=== PATIENT | male | born 1950 | race Caucasian/White ===

== ENCOUNTER 2019-01-21 02:15 | Inpatient (IN) | payer MEDICARE, BC ==
[~2019-01-21] VITALS: Ht 180.3 cm; Wt 81.6 kg
[2019-01-21] MEDS ORDERED: OMEPRAZOLE20 M1 PO (02:22)
[2019-01-21] MEDS ORDERED: CLARITHROMYCIN500 M1 PO (02:22)
[2019-01-21] MEDS ORDERED: FLAGYL500 MG PO ×2 (02:22)
[2019-01-21] MEDS ORDERED: AMOXICILLIN500 M1 PO (02:23)
[2019-01-21 02:48] LABS: BASOPHILS 0.1 % (0-2); EOSINOPHILS 0.7 % (0-7); HEMATOCRIT 48.5 % (42.0-54.0); HEMOGLOBIN 17.7 g/dL (13.5-17.5); IMMATURE GRANULOCYTES 0.2 % (0-5); LYMPHOCYTES 13.8 % (15-50); MCH 33.3 pg (26.0-34.0); MCHC 36.5 g/dL (31.0-37.0); MCV 91.3 fL (80.0-100.0); MEAN PLATELET VOLUME 9.8 fL (7.4-10.4); MONOCYTES 5.5 % (2-11); NEUTROPHILS 79.7 % (40-80); PLATELET COUNT 212 10x3/uL (130-400); RBC 5.31 10x6/uL (4.20-6.10); RDW 12.4 % (11.5-14.5); WBC 13.5 10x3/uL (4.8-10.8)
[2019-01-21 03:01] LABS: ALBUMIN 4.3 g/dL (3.4-5.0); ALKALINE PHOSPHATASE 70 U/L (46-116); ALT (SGPT) 23 U/L (10-68); BILIRUBIN - TOTAL 1.26 mg/dL (0.2-1.3); CALC OSMOLALITY 275 mosm/kg (275-300); CALCIUM 9.9 mg/dL (8.5-10.1); CHLORIDE - SERUM 95 mmol/L (98-107); CREATININE - SERUM 1.2 mg/dL (0.6-1.3); GLUCOSE 135 mg/dL (74-106); PROTEIN - SERUM 7.4 g/dL (6.4-8.2); SODIUM 136 mmol/L (136-145); UREA NITROGEN 19 mg/dL (7-18); eGFR NON AFRICAN AMERICAN 64 mL/min (90-120)
[2019-01-21 03:04] LABS: AMYLASE - SERUM 59 U/L (25-115); LIPASE 119 U/L (73-393)
[2019-01-21 03:05] LABS: TROPONIN-I < 0.017 ng/mL (0.000-0.060)
[2019-01-21 03:45] LABS: APPEARANCE CLEAR (CLEAR); BILIRUBIN NEGATIVE (NEGATIVE); COLOR YELLOW (YELLOW); GLUCOSE NEGATIVE (NEGATIVE); KETONE MODERATE mg/dL (NEGATIVE); NITRITE NEGATIVE (NEGATIVE); PROTEIN NEGATIVE (NEGATIVE); UROBILINOGEN NORMAL (NORMAL)
[2019-01-21 03:46] LABS: BACTERIA NONE SEEN /hpf (NONE SEEN); EPITHELIAL CELLS 0-5 /hpf (0-5); RED CELLS - URINE NONE SEEN /hpf (0-5); WHITE CELLS - URINE 0-5 /hpf (0-5)
--- NOTE | 2019-01-21 04:56 | NUR ---
PT TO RADIOLOGY.
--- NOTE | 2019-01-21 05:22 | NUR ---
PT RETURNED FROM RADIOLOGY.
--- NOTE | 2019-01-21 07:45 | NUR ---
RECEIVED PATIENT FROM ER NURSE VIA WHEEL CHAIR. VSS ON ROOM AIR. WILL CHECK ORDERS
[2019-01-21 07:55] VITALS: BP 130/80; BMI 25.1
--- NOTE | 2019-01-21 10:13 | NUR ---
INITAITED GINSENG FARMER PUMP PER ORDERED SETTINGS
--- NOTE | 2019-01-21 11:01 | NUR ---
16 AMHARIC NGT DROPPED TO LEFT NARE AND HOOKED UP TO LOW INTERMITENT SUCTION. DRAINING BILE CONTENTS
[2019-01-21 12:56] VITALS: BP 156/73
[2019-01-21 16:35] VITALS: BP 165/75
--- NOTE | 2019-01-21 18:19 | NUR ---
PATIENT STILL NAUSEATED AFTER ZOFRAN. CALLED DR. SINGH, ORDERS FOR PHENERGAN IM AND ZOFRAN DRIP IF I PLEASE.
--- NOTE | 2019-01-21 19:15 | NUR ---
RECEIVED CARE FROM DAY NURSE. LYING IN BED WITH FAMILY AT SIDE. IV INFUSING PER ORDER TO PATENT RIGHT AC. NG TUBE TO LIWS. CALL LIGHT AT SIDE. NO NEEDS VOICED AT THIS TIME.
[2019-01-21 20:00] VITALS: BP 124/52
[2019-01-22] VITALS: BP 137/80
--- NOTE | 2019-01-22 00:15 | NUR ---
SATING 85% ON ROOM AIR. 2L O2 APPLIED AND SATS ABBEY TO 94%. PT REPORTS TAKING SHALLOW BREATHS AND WAS SLEEPING. EARLIER IN SHIFT PT NOT USING FREIGHT FLAGMAN BUT BEGAN USING AROUND 2100.
--- NOTE | 2019-01-22 01:10 | NUR ---
I have reviewed this patient and I concur with the Shift Assessment completed by the Licensed Practical Nurse today this shift.
[2019-01-22 04:00] VITALS: BP 148/75
--- NOTE | 2019-01-22 04:43 | NUR ---
OUT OF ROOM AMBULATING IN HALLS
[2019-01-22 06:28] LABS: BASOPHILS 0.2 % (0-2); EOSINOPHILS 1.3 % (0-7); HEMATOCRIT 44.5 % (42.0-54.0); HEMOGLOBIN 15.8 g/dL (13.5-17.5); IMMATURE GRANULOCYTES 0.1 % (0-5); MCH 32.9 pg (26.0-34.0); MCHC 35.5 g/dL (31.0-37.0); MCV 92.7 fL (80.0-100.0); MEAN PLATELET VOLUME 9.7 fL (7.4-10.4); NEUTROPHILS 76.4 % (40-80); PLATELET COUNT 197 10x3/uL (130-400); RDW 12.7 % (11.5-14.5); WBC 11.1 10x3/uL (4.8-10.8)
[2019-01-22 06:49] LABS: CALC OSMOLALITY 280 mosm/kg (275-300); CALCIUM 8.6 mg/dL (8.5-10.1); CHLORIDE - SERUM 104 mmol/L (98-107); GLUCOSE 97 mg/dL (74-106); POTASSIUM - SERUM 3.8 mmol/L (3.5-5.1); SODIUM 140 mmol/L (136-145); UREA NITROGEN 18 mg/dL (7-18); eGFR NON AFRICAN AMERICAN 79 mL/min (90-120)
[2019-01-22 08:46] VITALS: BP 122/53
--- NOTE | 2019-01-22 09:21 | NUR ---
PT ALERT X 4. BREATH SOUNDS CLEAR BILAT. NG TUBE TO LEFT NARE SET TO LIWS. IV TO RIGHT AC, PATENT, DRESSING CDI. BOWEL SOUNDS HYPOACTIVE X 4. PT REPORTING NO PAIN AT THIS TIME. FAMILY AT BEDSIDE. BED LOW, CALL LIGHT IN REACH. NO OTHER NEEDS AT THIS TIME.
[2019-01-22 09:47] VITALS: Ht 180.3 cm; Wt 81.6 kg
[2019-01-22 12:39] VITALS: BP 126/68
[2019-01-22 16:52] VITALS: BP 134/73
--- NOTE | 2019-01-22 19:30 | NUR ---
PT SITTING UP IN BED WITHOUT DISTRESS, AOX4. FAMILY AT BEDSIDE. IV RIGHT AC INFUSING NS @ 125 WITH DILAUDID ADJUNCT INSTRUCTOR OF WOMEN'S STUDIES IN USE. PT STATES NO PAIN AT THIS TIME. BOWEL SOUNDS HYPOACTIVE, ABD TENDER TO TOUCH. DENIES NAUSEA. NGT LEFT NARE TO LIS. DENIES NEEDS, CL IN REACH. WILL CTM
--- NOTE | 2019-01-22 19:45 | NUR ---
PT AMBULATING AROUND NURSES STATION WITH ASSISTANCE FROM FAMILY
--- NOTE | 2019-01-22 22:45 | NUR ---
PT LYING IN BED RESTING QUIETLY. DENIES NEEDS. WILL CTM
[2019-01-23 00:46] VITALS: BP 151/81
[2019-01-23 05:03] VITALS: BP 128/67
--- NOTE | 2019-01-23 05:30 | NUR ---
PT AMBULATING IN HALLWAY WITH SPOUSE. DENIES NEEDS, WILL CTM
[2019-01-23 05:38] LABS: BASOPHILS 0.2 % (0-2); EOSINOPHILS 1.9 % (0-7); HEMATOCRIT 43.2 % (42.0-54.0); HEMOGLOBIN 14.9 g/dL (13.5-17.5); IMMATURE GRANULOCYTES 0.1 % (0-5); MCH 32.7 pg (26.0-34.0); MCHC 34.5 g/dL (31.0-37.0); MEAN PLATELET VOLUME 9.7 fL (7.4-10.4); MONOCYTES 9.6 % (2-11); NEUTROPHILS 73.2 % (40-80); PLATELET COUNT 173 10x3/uL (130-400); RBC 4.55 10x6/uL (4.20-6.10); RDW 12.8 % (11.5-14.5); WBC 9.6 10x3/uL (4.8-10.8)
[2019-01-23 05:39] LABS: MCV 94.9 fL (80.0-100.0)
[2019-01-23 05:53] LABS: CALC OSMOLALITY 286 mosm/kg (275-300); CALCIUM 8.5 mg/dL (8.5-10.1); CARBON DIOXIDE 28.7 mmol/L (21.0-32.0); CHLORIDE - SERUM 106 mmol/L (98-107); CREATININE - SERUM 0.8 mg/dL (0.6-1.3); GLUCOSE 82 mg/dL (74-106); POTASSIUM - SERUM 4.3 mmol/L (3.5-5.1); SODIUM 143 mmol/L (136-145); UREA NITROGEN 21 mg/dL (7-18); eGFR NON AFRICAN AMERICAN > 90 mL/min (90-120)
[2019-01-23 08:58] VITALS: BP 120/66
[2019-01-23 12:07] VITALS: BP 143/74
[2019-01-23 17:06] VITALS: BP 159/87
--- NOTE | 2019-01-23 19:25 | NUR ---
PT SITTING UP IN BED WITHOUT DISTRESS, AOX4. FAMILY AT BEDSIDE. IV LEFT FA INFUSING NS @ 125 WITH DILAUDID SLUDGE CONTROL OPERATOR IN USE. PT STATES NO PAIN AT THIS TIME. NGT TO LIS. DENIES NEEDS. CL IN REACH, WILL CTM
[2019-01-23 20:00] VITALS: BP 153/79
--- NOTE | 2019-01-23 20:30 | NUR ---
AMBULATING IN HALLWAYS WITH FAMILY
--- NOTE | 2019-01-23 21:31 | NUR ---
PT COMPLAINS OF NAUSEA, NO VOMITING. GAVE ZOFRAN ORDERED. DENIES OTHER NEEDS. CL IN REACH, WILL CTM
[2019-01-24] VITALS: BP 144/74
--- NOTE | 2019-01-24 03:00 | NUR ---
PT CALLED STATING HE WAS NAUSEOUS. GAVE ZOFRAN ORDERED AND COLD WASH CLOTH FOR FACE. NGT WITHOUT RECENT OUTPUT. FLUSHED NGT WITH 50ML WARM WATER, IMMEDIATE RETURN OF 600ML. PT BEGAN FEELING BETTER BEFORE THIS NURSE EXITED ROOM. WILL CTM
[2019-01-24 04:00] VITALS: BP 137/68
--- NOTE | 2019-01-24 04:40 | NUR ---
850ML OUTPUT FROM NGT AFTER PREVIOUS 500ML
--- NOTE | 2019-01-24 05:25 | NUR ---
NGT WOULD NOT SUCTION AFTER REPLACING CANNISTER. CHANGED OUT SUCTION EQUIPMENT AND FLUSHED TUBE. COULD NOT GET TUBE TO DRAW BACK AFTER FLUSHING WITH 30ML. TUBE WOULD START SUCTIONING IF PT MOVED HEAD TO DIFFERENT POSITIONS. PT FEELS LIKE HIS STOMACH IS BLOATED LIKE BEFORE WHEN SO MUCH WAS IN STOMACH. NGT IS PLACED AT PREVIOUS TAPE PLACED FOR CORRECT POSITION. STAT XRAY FOR NGT PLACEMENT.
--- NOTE | 2019-01-24 06:07 | NUR ---
XRAY RESULTS SHOW CORRECT NGT POSITION, NGT PLACED BACK TO LIS
[2019-01-24 06:29] LABS: BASOPHILS 0.1 % (0-2); EOSINOPHILS 0.2 % (0-7); HEMATOCRIT 42.5 % (42.0-54.0); HEMOGLOBIN 14.7 g/dL (13.5-17.5); IMMATURE GRANULOCYTES 0.1 % (0-5); LYMPHOCYTES 7.4 % (15-50); MCH 32.7 pg (26.0-34.0); MCHC 34.6 g/dL (31.0-37.0); MCV 94.7 fL (80.0-100.0); MONOCYTES 7.7 % (2-11); NEUTROPHILS 84.5 % (40-80); PLATELET COUNT 174 10x3/uL (130-400); RBC 4.49 10x6/uL (4.20-6.10); RDW 12.5 % (11.5-14.5); WBC 8.2 10x3/uL (4.8-10.8)
[2019-01-24 06:52] LABS: ALBUMIN 3.1 g/dL (3.4-5.0); ALKALINE PHOSPHATASE 52 U/L (46-116); ALT (SGPT) 15 U/L (10-68); BILIRUBIN - TOTAL 0.78 mg/dL (0.2-1.3); CALC OSMOLALITY 301 mosm/kg (275-300); CALCIUM 8.5 mg/dL (8.5-10.1); CARBON DIOXIDE 31.8 mmol/L (21.0-32.0); CHLORIDE - SERUM 110 mmol/L (98-107); CREATININE - SERUM 0.9 mg/dL (0.6-1.3); GLUCOSE 108 mg/dL (74-106); MAGNESIUM - SERUM 2.1 mg/dL (1.8-2.4); POTASSIUM - SERUM 4.2 mmol/L (3.5-5.1); PROTEIN - SERUM 6.3 g/dL (6.4-8.2); SODIUM 149 mmol/L (136-145); UREA NITROGEN 26 mg/dL (7-18); eGFR NON AFRICAN AMERICAN 90 mL/min (90-120)
--- NOTE | 2019-01-24 07:57 | NUR ---
RESTING IN BED. ALERT AND ORIENTED X 3. LUNGS CLEAR BILATERALLY IN ALL LOVE. HEART SOUNDS S1 AND S2 HEARD IN ALL LOVE. BOWEL SOUNDS HYPOACTIVE X 4. SKIN INTACT WITHOUT REDNESS. NG TUBE TO LEFT NARE HOOKED TO INTERMITTENT SUCTION PATENT. DENIES NEEDS AT THIS TIME. BED LOW. CALL FLANNERY AND PERSONAL ITEMS IN REACH. WILL CONTINUE TO MONITOR.
[2019-01-24 08:06] VITALS: BP 146/77
[2019-01-24 11:49] VITALS: BP 124/65
--- NOTE | 2019-01-24 13:47 | MORECARE ---
CASE MANAGEMENT DISCHARGE SUMMARY PATIENT: EVERARDO ACEVES UNIT: [id number] ADM DATE: 01/21/19 AGE: 68 : 52 SEX: M ROOM/BED: D.2230 AUTHOR: STEFANIE FARRELL PHYSICIAN: REFERRING PHYSICIAN: ROSETTA SINGH MD DATE OF SERVICE: 01/24/19 Discharge Plan Patient Name: EVERARDO ACEVES [facility] [facility] 1950 Planned Disposition: Home Anticipated Discharge Date: Discharge Date: Expected LOS: Initial Reviewer: [email or web address] Initial Review Date: 01/24/2019 Generated: 01/24/19 2:46 pm Comments DCP- Discharge Planning Updated by [email or web address]: Denise Gillette on 01/24/19 12:[address] Patient Name: EVERARDO ACEVES Admission Status: ER Accout number: [id number] Admission Date: 01-21-2019 : 1950 Admission Diagnosis: Attending: ROSETTA SINGH Current LOS: 3 Anticipated DC Date: Planned Disposition: Home Primary Insurance: MEDICARE A & B Discharge Planning Comments: CM met with patient at bedside after explaining CM role and obtaining verbal consent. CM discussed availability / needs of home health and medical equipment. Patient denies any discharge needs at this time. Training And Development Rep: Denise Gillette DCPIA - Discharge Planning Initial Assessment Updated by [email or web address]: Denise Gillette on 01/24/19 1:40 pm * Is the patient Alert and Oriented? Yes * PCP JAY * Pharmacy [facility] [address] * Preadmission Environment Home with Family * ADLs Independent * Additional services required to return to the preadmission environment? No * Can the patient safely return to the preadmission environment? Yes * Has this patient been hospitalized within the prior 30 days at any hospital? No Patient Name: EVERARDO ACEVES Page 56250 at 1347 All edits/amendments must be made on the electronic document DICTATION DATE: 01/24/19 1346 CUP TRIMMING MACHINE OPERATOR: STEPHANI 01/24/19 1346 RPT#: [id number] DC DATE: STATUS: ADM IN [facility] [address] [place] [address] END OF REPORT
--- NOTE | 2019-01-24 17:37 | NUR ---
NG TUBE WITH PROPER PLACEMENT PER STAT KUB.
--- NOTE | 2019-01-24 18:49 | NUR ---
RESTING IN BED. DENIES PAIN. DENIES NEEDS AT THIS TIME. BED LOW. CALL FLANNERY AND PERSONAL ITEMS IN REACH.
[2019-01-24 19:53] VITALS: BP 133/50
--- NOTE | 2019-01-24 23:08 | NUR ---
A&O X 4, UP AD ISAMAR. PT RECIEVED HIBICLENS. RECONNECTED TO FLUIDS. NGT TO LEFT NARE ON LIS. REPORTS ADEQUATE PAIN CONTROL WITH DISHWASHER PREPARER. DENIES NEEDS AT THIS TIME. WILL CONTINUE TO MONITOR.
--- NOTE | 2019-01-25 01:05 | NUR ---
I have reviewed this patient and I concur with the Shift Assessment completed by the Licensed Practical Nurse today this shift.
[2019-01-25 01:12] VITALS: BP 123/54
[2019-01-25 04:56] VITALS: BP 135/71
[2019-01-25 05:13] LABS: BASOPHILS 0.3 % (0-2); EOSINOPHILS 1.4 % (0-7); HEMATOCRIT 39.9 % (42.0-54.0); HEMOGLOBIN 13.9 g/dL (13.5-17.5); IMMATURE GRANULOCYTES 0.1 % (0-5); LYMPHOCYTES 14.4 % (15-50); MCH 32.7 pg (26.0-34.0); MCHC 34.8 g/dL (31.0-37.0); MCV 93.9 fL (80.0-100.0); MONOCYTES 9.4 % (2-11); NEUTROPHILS 74.4 % (40-80); PLATELET COUNT 159 10x3/uL (130-400); RBC 4.25 10x6/uL (4.20-6.10); RDW 12.7 % (11.5-14.5); WBC 7.1 10x3/uL (4.8-10.8)
[2019-01-25 05:44] LABS: ALBUMIN 2.9 g/dL (3.4-5.0); ALKALINE PHOSPHATASE 50 U/L (46-116); ALT (SGPT) 17 U/L (10-68); BILIRUBIN - TOTAL 0.74 mg/dL (0.2-1.3); CALC OSMOLALITY 297 mosm/kg (275-300); CALCIUM 8.4 mg/dL (8.5-10.1); CARBON DIOXIDE 30.6 mmol/L (21.0-32.0); CHLORIDE - SERUM 109 mmol/L (98-107); CREATININE - SERUM 0.9 mg/dL (0.6-1.3); GLUCOSE 105 mg/dL (74-106); MAGNESIUM - SERUM 2.1 mg/dL (1.8-2.4); POTASSIUM - SERUM 3.6 mmol/L (3.5-5.1); PROTEIN - SERUM 6.1 g/dL (6.4-8.2); SODIUM 147 mmol/L (136-145); UREA NITROGEN 29 mg/dL (7-18); eGFR NON AFRICAN AMERICAN 90 mL/min (90-120)
--- NOTE | 2019-01-25 08:30 | NUR ---
ASSESSMENT PER FLOW SHEET. PT IS WITHOUT DISTRESS.REMAINS NPO.CALL LIGHT IN REACH
[2019-01-25 08:31] VITALS: BP 134/65
[2019-01-25 15:51] VITALS: BP 132/60
--- NOTE | 2019-01-25 15:59 | NUR ---
BACK FROM PACU. LAP SITES X4 CDI.PT IS WITHOUT DISTRESS
[2019-01-25 20:18] VITALS: BP 110/66
--- NOTE | 2019-01-25 22:02 | NUR ---
A&O X 4, FAMILY AT BEDSIDE. REPORTS MODERATE SORENESS TO ABDOMEN. DRESSINGS X 4 C/D/I. DENIES NEEDS AT THIS TIME, WILL CONTINUE TO MONITOR.
[2019-01-26 00:44] VITALS: BP 117/68
--- NOTE | 2019-01-26 02:37 | NUR ---
I have reviewed this patient and I concur with the Shift Assessment completed by the Licensed Practical Nurse today this shift.
[2019-01-26 04:43] VITALS: BP 124/62
[2019-01-26 05:03] LABS: BASOPHILS 0.1 % (0-2); EOSINOPHILS 0 % (0-7); HEMATOCRIT 45.2 % (42.0-54.0); HEMOGLOBIN 15.8 g/dL (13.5-17.5); IMMATURE GRANULOCYTES 0.6 % (0-5); LYMPHOCYTES 3.5 % (15-50); MCH 32.7 pg (26.0-34.0); MCV 93.6 fL (80.0-100.0); MONOCYTES 5.7 % (2-11); NEUTROPHILS 90.1 % (40-80); PLATELET COUNT 168 10x3/uL (130-400); RBC 4.83 10x6/uL (4.20-6.10); RDW 12.9 % (11.5-14.5)
[2019-01-26 05:17] LABS: WBC 10.7 10x3/uL (4.8-10.8)
[2019-01-26 05:29] LABS: ALBUMIN 2.3 g/dL (3.4-5.0); ALKALINE PHOSPHATASE 36 U/L (46-116); ALT (SGPT) 14 U/L (10-68); BILIRUBIN - TOTAL 0.82 mg/dL (0.2-1.3); CALC OSMOLALITY 299 mosm/kg (275-300); CALCIUM 7.7 mg/dL (8.5-10.1); CARBON DIOXIDE 24.8 mmol/L (21.0-32.0); CHLORIDE - SERUM 113 mmol/L (98-107); GLUCOSE 135 mg/dL (74-106); MAGNESIUM - SERUM 1.8 mg/dL (1.8-2.4); POTASSIUM - SERUM 3.8 mmol/L (3.5-5.1); PROTEIN - SERUM 5.2 g/dL (6.4-8.2); SODIUM 147 mmol/L (136-145); UREA NITROGEN 29 mg/dL (7-18); eGFR NON AFRICAN AMERICAN 79 mL/min (90-120)
--- NOTE | 2019-01-26 09:54 | NUR ---
ADMINISTERED PRN TORADOL AND PATIENT STATES PAIN IS STILL AT A 9 AND HAS NOT WORKED, ADVISED PATIENT TO ALLOW A LITTLE MORE TIME, PT WENT AHEAD AND PUSHED BUTTON FOR PAIN MEDICATION, CONTINUE WITH PLAN OF CARE
[2019-01-26 11:44] VITALS: BP 112/64
--- NOTE | 2019-01-26 13:24 | NUR ---
Nutrition follow-up: Pt s/p lysis of adhesions Remains NPO with NGT->LIWS with high output bilious fluid No BM or flatus yet Labs reviewed Wt: 180# Will need nutrition support started within 24-48 hours if diet unable to begin RDN following.
--- NOTE | 2019-01-26 14:58 | NUR ---
I have reviewed this patient and I concur with the Shift Assessment completed by the Licensed Practical Nurse today this shift.
[2019-01-26 16:51] VITALS: BP 101/55
--- NOTE | 2019-01-26 18:34 | NUR ---
PATIENT ABLE TO PASS GAS AND HAD SMALL BM, SPOKE TO DR LOUIS AND GIVEN ORDER TO DC PT NGT AND ADVANCE DIET TO CLEAR LIQUIDS.
[2019-01-26 21:44] VITALS: BP 99/57
[2019-01-27 01:53] VITALS: BP 100/66
[2019-01-27 04:56] LABS: BASOPHILS 0.1 % (0-2); EOSINOPHILS 0.3 % (0-7); HEMATOCRIT 37.6 % (42.0-54.0); IMMATURE GRANULOCYTES 0.4 % (0-5); LYMPHOCYTES 4.5 % (15-50); MCH 32.1 pg (26.0-34.0); MCHC 34.6 g/dL (31.0-37.0); MCV 92.8 fL (80.0-100.0); MEAN PLATELET VOLUME 9.8 fL (7.4-10.4); MONOCYTES 3.3 % (2-11); NEUTROPHILS 91.4 % (40-80); PLATELET COUNT 136 10x3/uL (130-400); RBC 4.05 10x6/uL (4.20-6.10); RDW 13.2 % (11.5-14.5); WBC 11.8 10x3/uL (4.8-10.8)
[2019-01-27 04:57] VITALS: BP 108/60
[2019-01-27 05:20] LABS: ALBUMIN 2.2 g/dL (3.4-5.0); ALKALINE PHOSPHATASE 43 U/L (46-116); ALT (SGPT) 14 U/L (10-68); BILIRUBIN - TOTAL 0.59 mg/dL (0.2-1.3); CALC OSMOLALITY 308 mosm/kg (275-300); CALCIUM 7.4 mg/dL (8.5-10.1); CARBON DIOXIDE 26.6 mmol/L (21.0-32.0); GLUCOSE 121 mg/dL (74-106); MAGNESIUM - SERUM 1.9 mg/dL (1.8-2.4); POTASSIUM - SERUM 3.4 mmol/L (3.5-5.1); PROTEIN - SERUM 4.6 g/dL (6.4-8.2); SODIUM 152 mmol/L (136-145); UREA NITROGEN 29 mg/dL (7-18); eGFR NON AFRICAN AMERICAN 79 mL/min (90-120)
[2019-01-27 05:25] LABS: CHLORIDE - SERUM 117 mmol/L (98-107)
[2019-01-27 09:26] VITALS: BP 130/78
--- NOTE | 2019-01-27 10:45 | NUR ---
PATIENT UP TO SHOWER. CHANGED RIGHT INCISIONAL DRESSING. CLEAN AND DRY WITH NO SIGNS OF INFECTION. IV INTACT. CALL LIGHT WITHIN REACH. FAMILY AT BEDSIDE.
--- NOTE | 2019-01-27 11:30 | NUR ---
PATIENT AMBULATING IN [place] WITH WITH NO PROBLEMS. IV INTACT.
[2019-01-27 12:48] VITALS: BP 100/61
--- NOTE | 2019-01-27 13:00 | NUR ---
PATIENT SITTING UP IN CHAIR AT THIS TIME WITH NO COMPLAINTS OR SIGNS OF DISTRESS. CALL LIGHT WITHIN REACH.
--- NOTE | 2019-01-27 13:23 | OP ---
PATIENT NAME: EVERARDO ACEVES MEDICAL RECORD: [id number] :54 LOCATION:D.MS [id number] ADMISSION DATE:01/21/19 SURGEON: TYRESE QUIROZ MD DATE OF OPERATION: 01/25/2019 PREOPERATIVE DIAGNOSES: 1. Small-bowel obstruction secondary to adhesions. 2. Coronary artery disease. 3. Hypertension. POSTOPERATIVE DIAGNOSES: 1. Small-bowel obstruction secondary to adhesions. 2. Coronary artery disease. 3. Hypertension. PROCEDURES: 1. Laparoscopic lysis of adhesions. 2. Repair of small bowel enterotomy times 2. SURGEON: Tyrese Quiroz MD REPORT OF PROCEDURE: The patient's abdomen was prepped and draped in sterile fashion. A Veress needle was inserted in the left upper quadrant and the abdomen was insufflated. A 5-mm Visiport trocar was inserted in the left lateral abdomen. We can see the Veress needle and there was no sign of any injury to bowel or surrounding structures. The patient had some adhesions in the midline from previous hand-assisted laparoscopic right hemicolectomy. The 5-mm trocar was placed in the left subcostal region and a 5-mm trocar was placed in the left lower quadrant. Using sharp dissection, we were able to take down the adhesions off the anterior abdominal wall, which were of the omentum and fatty tissue to the incision. Once these were down, then we began our inspection of the small bowel, most of the dilated small bowel was on the right side of the abdomen. As we progressed on the right upper quadrant, this appeared to be the area of our obstruction. The bowel was very dilated in this area with dark discoloration, but no signs of any gangrene or necrosis. As we were able to dissect down through the adhesions, we found a very dense band of adhesions which was causing the main portion of the bowel obstruction. We released this band and the tissue underlying this appeared to be very dusky and actually had a perforation present. The perforation appeared to have been blocked by the surrounding tissues and this band, which was causing a necrotic ring to occur in the bowel. We suctioned out any of the enteral contents that were present. We then made a small incision in the right upper quadrant, coming transversely through the anterior and posterior fascia. We then eviscerated this perforated section of bowel through the wound. A opening was made in the distal aspect of the bowel and we were able to fire a 60 blue load Endo-LIBBY stapler to form a [id number]-rz-xhco anastomosis. We then used a 60-blue load TA stapler to close the enterotomies. We then oversewed the staple lines using Lemberted 3-0 silks and pushed this piece of bowel back into the abdominal cavity. We then closed the posterior layer of fascia using a running 0 Vicryl and the anterior layer fascia was closed with a running #1 loop PDS. We reentered the abdomen then irrigated out the tissues, but we could see there were still some adhesions present of the mid jejunum to the posterior aspect of the abdominal wall. Using sharp dissection, we took down these adhesions, but some of these were very deep and difficult to get to. Upon doing this, a traction injury occurred to the small bowel causing another small perforation. OPERATIVE REPORT [id number] EVERARDO ACEVES We freed up all the adhesions and reopened the right upper quadrant incision. We eviscerated this piece of the small bowel and closed up the small enterotomy using a 30 blue load TIA stapler. The enterotomy was on the antimesenteric side of the bowel and closed easily with no sign of any stricturing of the bowel. We then oversewed the staple line using Lemberted 3-0 silks. This piece of bowel was pushed back into the abdominal cavity. We closed the posterior layer of fascia with running 0 Vicryl and the anterior layer of fascia with a #1 PDS. We then reentered the abdominal cavity and irrigated out thoroughly with normal saline with care taken to try and remove any enteral contents that were left behind. I did not see evidence of any further bowel injury. There were diffuse adhesions that were present. These were taken down with sharp dissection. At this point, we had a freely mobile bowel in the right side of the abdomen with no sign of any strictures or enteral leaks. We then removed the trocars and the insufflation. The wounds were irrigated out with normal saline. The skin incisions were then all closed with subcutaneous 5-0 Monocryl. COMPLICATIONS: Enterotomies times 2. CONDITION: Stable. ANESTHESIA: General endotracheal. BLOOD LOSS: Minimal. TRANSINT:[id number] Voice Confirmation ID: [id number] DOCUMENT ID: [id number] TYRESE QUIROZ MD at 1323 CC: [id number] DICTATION DATE: 01/25/19 1456 ADMINISTRATIVE INTERN: 01/25/19 1542 ADM IN [place] [id number] [place] [place] [address]
[2019-01-27 16:29] VITALS: BP 144/74
--- NOTE | 2019-01-27 17:00 | NUR ---
PATIENT ATE 20 % OF REGULAR FOOD. NO NAUSEA OR VOMITTING. IV INTACAT. FAMILY AT BEDSIDE. CALL LIGHT WITHN REACH.
--- NOTE | 2019-01-27 20:00 | NUR ---
SITTING IN RECLINER WITH AT BEDSIDE A/O WITH NO SIGNS OF ACUTE DISTRESS. IV TO THE LT FOREARM WITH NO REDNESS OR SWELLING NOTED. FOUR LAP SITED NOTED TO THE ABDOMEN, CDI. PT REQUEST FOR STOOL SOFTENER. WILL NOTIFY MD. NO OTHER NEEDS NOTED AT THIS TIME. CONTINUE WITH PLAN OF CARE.
[2019-01-27 21:43] VITALS: BP 108/64
[2019-01-28 01:31] VITALS: BP 117/73
[2019-01-28 05:54] VITALS: BP 121/74
[2019-01-28 07:13] LABS: ALKALINE PHOSPHATASE 45 U/L (46-116); ALT (SGPT) 16 U/L (10-68); BILIRUBIN - TOTAL 0.49 mg/dL (0.2-1.3); CALC OSMOLALITY 300 mosm/kg (275-300); CALCIUM 7.4 mg/dL (8.5-10.1); CARBON DIOXIDE 24.4 mmol/L (21.0-32.0); CREATININE - SERUM 0.9 mg/dL (0.6-1.3); GLUCOSE 103 mg/dL (74-106); MAGNESIUM - SERUM 2.1 mg/dL (1.8-2.4); POTASSIUM - SERUM 3.6 mmol/L (3.5-5.1); PROTEIN - SERUM 4.6 g/dL (6.4-8.2); SODIUM 150 mmol/L (136-145); UREA NITROGEN 22 mg/dL (7-18); eGFR NON AFRICAN AMERICAN 90 mL/min (90-120)
[2019-01-28 07:34] LABS: CHLORIDE - SERUM 116 mmol/L (98-107)
[2019-01-28] MEDS ORDERED: HYDROCODON-ACE1 EA10 PO (07:34)
[2019-01-28] MEDS ORDERED: LEVAQUIN750 MG PO (07:35)
[2019-01-28] MEDS ORDERED: FLAGYL500 MG PO (07:35)
[2019-01-28 09:28] VITALS: BP 143/74
--- NOTE | 2019-01-28 10:07 | MORECARE ---
CASE MANAGEMENT DISCHARGE SUMMARY PATIENT: EVERARDO ACEVES UNIT: [id number] ADM DATE: 01/21/19 AGE: 68 : 52 SEX: M ROOM/BED: D.2230 AUTHOR: BUDDOC PHYSICIAN: REFERRING PHYSICIAN: ROSETTA SINGH MD DATE OF SERVICE: 01/28/19 Discharge Plan Patient Name: EVERARDO ACEVES Facility: [facility]:[place] : 1950 Planned Disposition: Home Anticipated Discharge Date: 01/28/19 Discharge Date: Expected LOS: 7 Initial Reviewer: [id number] Initial Review Date: 01/24/2019 Generated: 01/28/19 11:07 am Comments DCP- Discharge Planning Updated by [id number]: Denise Gillette on 01/28/19 9:[address] Patient Name: EVERARDO ACEVES Encounter No: [id number] : 1950 Primary Insurance: MEDICARE A & B Anticipated DC Date: Planned Disposition: Home External Planned Provider: : DCP follow-up note: Patient and family in agreement with discharge plan. No changes to plan. Case management will follow and assist as needed. IMM SIGNED. Denise Gillette DCP- Discharge Planning Updated by [id number]: Denise Gillette on 01/24/19 12:[address] Patient Name: EVERARDO ACEVES Admission Status: ER Accout number: [id number] Admission Date: 01-21-2019 : 1950 Admission Diagnosis: Attending: ROSETTA SINGH Current LOS: 3 Anticipated DC Date: Planned Disposition: Home Primary Insurance: MEDICARE A & B Discharge Planning Comments: CM met with patient at bedside after explaining CM role and obtaining verbal consent. CM discussed availability / needs of home health and medical equipment. Patient denies any discharge needs at this time. Industrial Gas Service Helper: Denise Gillette DCPIA - Discharge Planning Initial Assessment Updated by [id number]: Denise Gillette on 01/24/19 1:40 pm * Is the patient Alert and Oriented? Yes * PCP THOMPSON * Pharmacy [facility] [address] * Preadmission Environment Home with Family * ADLs Independent * Additional services required to return to the preadmission environment? No * Can the patient safely return to the preadmission environment? Yes * Has this patient been hospitalized within the prior 30 days at any hospital? No Coverage Notice Reviewer: [email or web address] - Denise Gillette Notice Issued Date-Time: 01/28/2019 10:00 Notice Type: IM Discharge Notice Notice Delivered To: Patient Relationship to Patient: Classification And Treatment Director Name: Delivery Method: HAND - Hand Delivered Anum Days: Prior Verbal Notification: Recipient Understood Notice: Yes Recipient Signature: Yes Med Rec Note Co-signed by Attending: Coverage Notice Comment: Last DP export: 01/24/19 12:47 p Patient Name: EVERARDO ACEVES Page 29198 at 1007 All edits/amendments must be made on the electronic document DICTATION DATE: 01/28/19 [facility] PICK PACK WORKER: STEPHANI 01/28/19 [facility] RPT#: [id number] DC DATE: STATUS: ADM IN [facility] [address] [place] [address] END OF REPORT
--- NOTE | 2019-01-28 11:13 | NUR ---
PATIENT IV THERAPY DC'ED FROM LEFT FOREARM WITH TIP INTACT. AND HIM VERBALIZED UNDERSTANDING OF DISCHARGE INSTRUCTIONS. PATIENT TO TAKE A SHOWER THEN GET WHEELED DOWNSTAIRS.
--- NOTE | 2019-01-28 16:19 | MORECARE ---
CASE MANAGEMENT DISCHARGE SUMMARY PATIENT: EVERARDO ACEVES UNIT: [id number] ADM DATE: 01/21/19 AGE: 68 : 54 SEX: M ROOM/BED: D.2230 AUTHOR: BUDDOC PHYSICIAN: REFERRING PHYSICIAN: ROSETTA SINGH MD DATE OF SERVICE: 01/28/19 Discharge Plan Patient Name: EVERARDO ACEVES Facility: [facility]:[place] : 1950 Planned Disposition: Home Anticipated Discharge Date: 01/28/19 Discharge Date: 01/28/2019 Expected LOS: 7 Initial Reviewer: [email or web address] Initial Review Date: 01/24/2019 Generated: 01/28/19 5:18 pm Comments DCP- Discharge Planning Updated by [email or web address]: Denise Gillette on 01/28/19 9:[address] Patient Name: EVERARDO ACEVES Encounter No: [id number] : 1950 Primary Insurance: MEDICARE A & B Anticipated DC Date: Planned Disposition: Home External Planned Provider: : DCP follow-up note: Patient and family in agreement with discharge plan. No changes to plan. Case management will follow and assist as needed. IMM SIGNED. Denise Gillette DCP- Discharge Planning Updated by [email or web address]: Denise Gillette on 01/24/19 12:[address] Patient Name: EVERARDO ACEVES Admission Status: ER Accout number: [id number] Admission Date: 01-21-2019 : 1950 Admission Diagnosis: Attending: ROSETTA SINGH Current LOS: 3 Anticipated DC Date: Planned Disposition: Home Primary Insurance: MEDICARE A & B Discharge Planning Comments: CM met with patient at bedside after explaining CM role and obtaining verbal consent. CM discussed availability / needs of home health and medical equipment. Patient denies any discharge needs at this time. Housing Assistant: Denise Gillette DCPIA - Discharge Planning Initial Assessment Updated by [email or web address]: Denise Gillette on 01/24/19 1:40 pm * Is the patient Alert and Oriented? Yes * PCP THOMPSON * Pharmacy [facility] [address] * Preadmission Environment Home with Family * ADLs Independent * Additional services required to return to the preadmission environment? No * Can the patient safely return to the preadmission environment? Yes * Has this patient been hospitalized within the prior 30 days at any hospital? No Coverage Notice Reviewer: [id number] Denise Gillette Notice Issued Date-Time: 01/28/2019 10:00 Notice Type: IM Discharge Notice Notice Delivered To: Patient Relationship to Patient: Front End Software Engineer Name: Delivery Method: HAND - Hand Delivered Anum Days: Prior Verbal Notification: Recipient Understood Notice: Yes Recipient Signature: Yes Med Rec Note Co-signed by Attending: Coverage Notice Comment: Last DP export: 01/28/19 9:07 a Patient Name: EVERARDO ACEVES Page 07900 at 1619 All edits/amendments must be made on the electronic document DICTATION DATE: 01/28/191617 NECK BAND MAKER: STEPHANI 01/28/191617 RPT#: [id number] DC DATE:01/28/19 STATUS: DIS IN [facility] [address] [place] [address] END OF REPORT
== END 2019-01-28 11:48 | disposition home or self-care (01) | DRG 329 ==
LOC: D.ER 02:15 → D.MS 07:38
PROVIDERS: Family Medicine; Surgery; ADMIT Internal Medicine Nephrology; ATTEND Internal Medicine Nephrology
PROC: 0DQ80ZZ Repair Small Intestine, Open Approach (ICD-10-PCS; 2019-01-25)
PROC: 0DQ80ZZ Repair Small Intestine, Open Approach (ICD-10-PCS; 2019-01-25)
PROC: 0DBB0ZZ Excision of Ileum, Open Approach (ICD-10-PCS; 2019-01-25)
PROC: 0DN84ZZ Release Small Intestine, Percutaneous Endoscopic Approach (ICD-10-PCS; principal; 2019-01-25 11:15)
DX: K56.50 Intestinal adhesions [bands], unspecified as to partial versus complete obstruction (principal); K63.1 Perforation of intestine (nontraumatic); K55.049 Acute infarction of large intestine, extent unspecified; I10 Essential (primary) hypertension; I25.10 Atherosclerotic heart disease of native coronary artery without angina pectoris

== ENCOUNTER 2019-01-30 22:31 | Inpatient (IN) | payer MEDICARE, BC ==
[~2019-01-30] VITALS: Ht 180.3 cm; Wt 85.3 kg
[~2019-01-30 22:31] MED LIST: AMOXICILLIN500 M1 PO; CLARITHROMYCIN500 M1 PO; FLAGYL500 MG PO; HYDROCODON-ACE1 EA10 PO; LEVAQUIN750 MG PO; OMEPRAZOLE20 M1 PO
[2019-01-30 23:00] LABS: BASOPHILS 0.1 % (0-2); HEMATOCRIT 37.9 % (42.0-54.0); HEMOGLOBIN 13.5 g/dL (13.5-17.5); IMMATURE GRANULOCYTES 0.4 % (0-5); LYMPHOCYTES 14.1 % (15-50); MCH 32.7 pg (26.0-34.0); MCHC 35.6 g/dL (31.0-37.0); MCV 91.8 fL (80.0-100.0); MONOCYTES 11.9 % (2-11); NEUTROPHILS 69.5 % (40-80); RBC 4.13 10x6/uL (4.20-6.10); RDW 13.6 % (11.5-14.5); WBC 8.3 10x3/uL (4.8-10.8)
[2019-01-30 23:01] LABS: PLATELET COUNT 170 10x3/uL (130-400)
--- NOTE | 2019-01-30 23:14 | NUR ---
URINE SPECIMEN SENT TO LAB
[2019-01-30 23:23] LABS: ALKALINE PHOSPHATASE 55 U/L (46-116); ALT (SGPT) 22 U/L (10-68); AMYLASE - SERUM 110 U/L (25-115); BILIRUBIN - TOTAL 0.53 mg/dL (0.2-1.3); CALC OSMOLALITY 284 mosm/kg (275-300); CALCIUM 7.5 mg/dL (8.5-10.1); CARBON DIOXIDE 28.7 mmol/L (21.0-32.0); CHLORIDE - SERUM 108 mmol/L (98-107); CREATININE - SERUM 0.9 mg/dL (0.6-1.3); GLUCOSE 108 mg/dL (74-106); LIPASE 817 U/L (73-393); PROTEIN - SERUM 5.4 g/dL (6.4-8.2); SODIUM 142 mmol/L (136-145); TROPONIN-I 0.028 ng/mL (0.000-0.060); UREA NITROGEN 16 mg/dL (7-18); eGFR NON AFRICAN AMERICAN 90 mL/min (90-120)
[2019-01-30 23:25] LABS: POTASSIUM - SERUM 2.9 mmol/L (3.5-5.1)
--- NOTE | 2019-01-30 23:27 | NUR ---
PT CONSUMED APPROX 3/4 ORAL CONTRAST AT THIS TIME. PT SPOUSE AT BEDSIDE.
[2019-01-30 23:31] LABS: APPEARANCE CLEAR (CLEAR); BILIRUBIN NEGATIVE (NEGATIVE); COLOR YELLOW (YELLOW); GLUCOSE NEGATIVE (NEGATIVE); KETONE NEGATIVE (NEGATIVE); NITRITE NEGATIVE (NEGATIVE); PROTEIN NEGATIVE (NEGATIVE); UROBILINOGEN NORMAL (NORMAL)
[2019-01-30 23:32] LABS: BACTERIA FEW /hpf (NEGATIVE); EPITHELIAL CELLS 0-5 /hpf (0-5); RED CELLS - URINE 0-5 /hpf (0-5); WHITE CELLS - URINE 0-5 /hpf (NEGATIVE)
--- NOTE | 2019-01-31 00:22 | NUR ---
PT LEFT ED VIA STRETCHER FOR CT.
--- NOTE | 2019-01-31 01:09 | NUR ---
PT AND SPOUSE UPDATED ON PLAN OF CARE.
--- NOTE | 2019-01-31 01:28 | NUR ---
LAB AT BEDSIDE. BLOOD CULTURES DRAWN.
--- NOTE | 2019-01-31 02:05 | NUR ---
ADMITTED TO BED FROM ER AT THIS TIME PT DENIES PAIN AT THIS TIME BUT WANTS MED TO HELP HIM SLEEP BED IS LOW AND LOCKED AND CALL LIGHT PLACED WITH PT
[2019-01-31 02:51] VITALS: BP 163/73; BMI 26.3
[2019-01-31 04:24] VITALS: BP 124/71
[2019-01-31 07:53] VITALS: BP 119/64
--- NOTE | 2019-01-31 09:35 | NUR ---
PATIENT IS RESTING QUIETLY AT THIS TIME. HIS VOICE IS VERY SOFT. DENIES ANY NEEDS AT THIS TIME.
[2019-01-31 11:03] VITALS: BP 117/70
[2019-01-31 14:42] VITALS: BMI 26.2
[2019-01-31 15:37] VITALS: BP 130/89
--- NOTE | 2019-01-31 19:30 | NUR ---
PT SITTING UP IN BED ALERT AND ORIENTED X4 WITH AT BEDSIDE. PT HAS SCD'S ON AT THIS TIME. PT DENIES ANY PAIN OR FURHTER NEEDS AT THIS TIME. BED LOW CALL LIGHT WITHIN REACH. WILL CONTINUE TO MONITOR.
--- NOTE | 2019-01-31 19:35 | NUR ---
REPORTED ELEVATED D DIMER TO ENRIQUE QUIÑONES
[2019-01-31 20:00] VITALS: BP 116/64
[2019-02-01] VITALS: BP 121/69
[2019-02-01 01:06] LABS: APTT 28.7 SECONDS (22.8-39.4); INR 1.29 (0.85-1.17); PROTIME 15.6 SECONDS (11.6-15.0)
[2019-02-01 05:49] LABS: BASOPHILS 0.2 % (0-2); EOSINOPHILS 3.1 % (0-7); HEMATOCRIT 38.5 % (42.0-54.0); HEMOGLOBIN 13.6 g/dL (13.5-17.5); IMMATURE GRANULOCYTES 0.4 % (0-5); LYMPHOCYTES 10.2 % (15-50); MCH 32.1 pg (26.0-34.0); MCHC 35.3 g/dL (31.0-37.0); MCV 90.8 fL (80.0-100.0); MONOCYTES 10.5 % (2-11); NEUTROPHILS 75.6 % (40-80); PLATELET COUNT 195 10x3/uL (130-400); RBC 4.24 10x6/uL (4.20-6.10); RDW 13.5 % (11.5-14.5); WBC 8.9 10x3/uL (4.8-10.8)
[2019-02-01 06:22] LABS: CALC OSMOLALITY 278 mosm/kg (275-300); CALCIUM 7.8 mg/dL (8.5-10.1); CARBON DIOXIDE 28.7 mmol/L (21.0-32.0); CHLORIDE - SERUM 105 mmol/L (98-107); CREATININE - SERUM 0.8 mg/dL (0.6-1.3); GLUCOSE 101 mg/dL (74-106); LIPASE 563 U/L (73-393); MAGNESIUM - SERUM 1.9 mg/dL (1.8-2.4); PHOSPHOROUS 2.3 mg/dL (2.5-4.9); SODIUM 139 mmol/L (136-145); UREA NITROGEN 14 mg/dL (7-18); eGFR NON AFRICAN AMERICAN > 90 mL/min (90-120)
[2019-02-01 06:25] LABS: POTASSIUM - SERUM 3.6 mmol/L (3.5-5.1)
--- NOTE | 2019-02-01 07:14 | NUR ---
REPORT RECEIVED. WILL CONTINUE WITH POC. PT CURRENTLY LYING SEMI FOWLERS. CALL LIGHT W/I REACH. AT BEDSIDE. PT IS AAO AND UP AD ISAMAR. RR EVEN AND UNLABORED ON RA. L.AC PIV IS SALINE LOCKED. PT DENIES ANY NEEDS AT THIS TIME. NO S/S OF DISTRESS NOTED. WILL CTM.
[2019-02-01 08:00] VITALS: BP 120/64
[2019-02-01 09:26] VITALS: Ht 180.3 cm; Wt 85.3 kg
--- NOTE | 2019-02-01 11:56 | NUR ---
I have reviewed this patient and I concur with the Shift Assessment completed by the Licensed Practical Nurse today this shift.
[2019-02-01 12:24] VITALS: BP 126/65
--- NOTE | 2019-02-01 13:38 | EC ---
PATIENT:EVERARDO ACEVES DATE OF SERVICE: 01/31/19 SEX: M MEDICAL RECORD: [id number] DATE OF : [birth year] LOCATION:D.M2 D.213 AGE OF PATIENT: 68 ADMISSION DATE: 01/31/19 REFERRING PHYSICIAN: INTERPRETING PHYSICIAN: ABELINO SALOMON MD ECHOCARDIOGRAM REPORT ECHO CHARGES 4 ECHO COMPLETE Date: 01/31/19 CLINICAL DIAGNOSIS: CHF ECHOCARDIOGRAPHIC MEASUREMENTS (adult normal given) AC root (d.<3.7cm) 2.9 cm LV Septum d (<1.2 cm> 0.9 cm Valve Excursion 1.7 cm LV Septum (systole) 1.3 cm Left Atria (s.<4.0cm> 3.9 cm LVPW d(<1.2cm) 1.2 cm RV (d.<2.3cm) 2.8 cm LVPW (sytole) 1.3 cm LV diastole(<5.6CM) 5.6 cm MV E-F(>70mm/sec) cm LV systole 4.5 cm LVOT Diameter 2.2 cm MV exc.(>10mm) cm Est.ejection fraction (50-75%) % DOPPLER: LVIT cm/sec A 107 cm/sec E 108 cm/sec LA cm/sec RVSP 31.0 mmHg LVOT 178 cm/sec AOP1/2T m/s Asc. Ao 186 cm/sec RVOT 75 cm/sec RA cm/sec PA 100 cm/sec AV Gradient Peak 13.9 mmHg AV Mean 7.0 mmHg AV Area 3.5 cm MV Gradient Peak 5.4 mmHg MV Mean 1.8 mmHg MV Area cm COMMENTS: Cut Pressman: Myke ALAN Grain Inspector: 1 Dr. Salomon TAPE# PACS Pericardial Effusion N DATE OF SERVICE: 01/31/2019 PROCEDURE: Echocardiogram. FINDINGS: 1. Left ventricular chamber size is within normal limits. Left ventricular systolic function is normal at 55%. 2. Left atrium, right atrium and right ventricular chamber sizes are within normal limits. 3. Valvular structures have normal structure and motion. ECHOCARDIOGRAM REPORT [id number] EVERARDO ACEVES 4. Doppler interrogation reveals mild mitral regurgitation, no other valvular insufficiency or stenosis. Pulmonary systolic pressure is estimated at 31 mmHg. 5. No evidence of pericardial effusion or left ventricular thrombus. TRANSINT:[id number] Voice Confirmation ID: [id number] DOCUMENT ID: [id number] ABELINO SALOMON MD at 1338 CC: [id number] DICTATION DATE: 01/31/19 165 AREA COORDINATOR: 02/01/19 0125 ADM IN [facility] [address] [place] [id number]
[2019-02-01 16:19] VITALS: BP 124/70
--- NOTE | 2019-02-01 19:36 | NUR ---
REPORT REECIEVED AND ROUNDING COMPLETE. PATIENT UP WALKING THE HALLWAYS WITH HIS . PATIENT NOT SHOWING ANY S/SX OF DISTRESS AT THIS TIME. PATIENT HAS A LEFT AC PIV THAT IS SALINE LOCKED. NO S/SX OF DISTRESS AT THIS TIME. CALL LIGHT IS LAYING ON THE BED AND BED I LOCKED.
[2019-02-01 20:15] VITALS: BP 124/60
[2019-02-02 00:02] VITALS: BP 123/73
--- NOTE | 2019-02-02 01:17 | NUR ---
ER TOOK PATIENTS [facility]LET PER PATIENT'S REQUEST, PATIENT SIGNED CONSENT. MICHAEL PARKER RN WITNESSED.
[2019-02-02 04:00] VITALS: BP 120/69
--- NOTE | 2019-02-02 04:33 | NUR ---
I have reviewed this patient and I concur with the Shift Assessment completed by the Licensed Practical Nurse today this shift.
[2019-02-02 06:44] LABS: BASOPHILS 0.2 % (0-2); EOSINOPHILS 3.5 % (0-7); HEMATOCRIT 37.7 % (42.0-54.0); HEMOGLOBIN 13.4 g/dL (13.5-17.5); IMMATURE GRANULOCYTES 0.3 % (0-5); LYMPHOCYTES 16.4 % (15-50); MCH 32.1 pg (26.0-34.0); MCHC 35.5 g/dL (31.0-37.0); MCV 90.2 fL (80.0-100.0); MEAN PLATELET VOLUME 10.3 fL (7.4-10.4); MONOCYTES 8.4 % (2-11); NEUTROPHILS 71.2 % (40-80); RBC 4.18 10x6/uL (4.20-6.10); RDW 13.2 % (11.5-14.5); WBC 9.1 10x3/uL (4.8-10.8)
[2019-02-02 06:46] LABS: ALBUMIN 1.8 g/dL (3.4-5.0); ALKALINE PHOSPHATASE 52 U/L (46-116); ALT (SGPT) 20 U/L (10-68); BILIRUBIN - TOTAL 0.47 mg/dL (0.2-1.3); CALC OSMOLALITY 277 mosm/kg (275-300); CALCIUM 7.5 mg/dL (8.5-10.1); CARBON DIOXIDE 26.2 mmol/L (21.0-32.0); CHLORIDE - SERUM 106 mmol/L (98-107); CREATININE - SERUM 0.8 mg/dL (0.6-1.3); GLUCOSE 91 mg/dL (74-106); LIPASE 481 U/L (73-393); POTASSIUM - SERUM 3.2 mmol/L (3.5-5.1); PROTEIN - SERUM 5.1 g/dL (6.4-8.2); SODIUM 139 mmol/L (136-145); UREA NITROGEN 12 mg/dL (7-18); eGFR NON AFRICAN AMERICAN > 90 mL/min (90-120)
[2019-02-02 06:49] LABS: PLATELET COUNT 249 10x3/uL (130-400)
[2019-02-02 08:45] VITALS: BP 125/73
[2019-02-02] MEDS ORDERED: MIRALAX17 GM PO (11:14)
--- NOTE | 2019-02-02 11:25 | MORECARE ---
CASE MANAGEMENT DISCHARGE SUMMARY PATIENT: EVERARDO ACEVES UNIT: [id number] ADM DATE: 01/31/19 AGE: 68 : 52 SEX: M ROOM/BED: D.2132 AUTHOR: STEFANIE FARRELL PHYSICIAN: REFERRING PHYSICIAN: ROSETTA SINGH MD DATE OF SERVICE: 02/02/19 Discharge Plan Patient Name: EVERARDO ACEVES [facility] [facility] 1950 Planned Disposition: Home Anticipated Discharge Date: Discharge Date: Expected LOS: Initial Reviewer: [email or web address] Initial Review Date: 02/02/2019 Generated: 02/02/19 12:25 pm Comments DCP- Discharge Planning Updated by [email or web address]: Denise Gillette on 02/02/19 10:[address] Patient Name: EVERARDO ACEVES Admission Status: ER Accout number: [id number] Admission Date: 01-31-2019 : 1950 Admission Diagnosis: Attending: ROSETTA SINGH Current LOS: 2 Anticipated DC Date: Planned Disposition: Home Primary Insurance: MEDICARE A & B Discharge Planning Comments: MET WITH PATIENT AND HIS ABOUT DC PLANNING/NEEDS. HE WAS DISCHARGED THURSDAY FROM HERE AND STATES STARTED HAVING ABDOMINAL PAIN AND CAME TO ER. STATES PLANS TO DC TO HOME WITH TODAY. DENIES ANY NEEDS. Material Movers: Denise Gillette DCPIA - Discharge Planning Initial Assessment Updated by [email or web address]: Denise Gillette on 02/02/19 11:21 am * Is the patient Alert and Oriented? Yes * Preadmission Environment Home with Family * ADLs Independent * Additional services required to return to the preadmission environment? No * Can the patient safely return to the preadmission environment? Yes * Has this patient been hospitalized within the prior 30 days at any hospital? Yes Patient Name: EVERARDO ACEVES Page 09611 at 1125 All edits/amendments must be made on the electronic document DICTATION DATE: 02/02/19 1125 ROLL TRUCKER: STEPHANI 02/02/19 1125 RPT#: [id number] DC DATE: STATUS: ADM IN [place] [address] [place] [address] END OF REPORT
[2019-02-02 11:45] VITALS: BP 139/70
--- NOTE | 2019-02-02 12:17 | NUR ---
I have reviewed this patient and I concur with the Shift Assessment completed by the Licensed Practical Nurse today this shift.
--- NOTE | 2019-02-02 14:15 | NUR ---
DISCHARGE INSTRUCTIONS GIVEN AND EXPLAINED TO PT. PT VERBALIZED UNDERSTANDING. PT'S ALSO AT BEDSIDE AND VERBALIZED UNDERSTANDING. DISCHARGE PAPERS SIGNED. LEFT AC IV DC'D WITH CATH INTACT.
--- NOTE | 2019-02-02 14:25 | NUR ---
PT LEFT WITH IN PERSONAL CAR. PT TAKEN DOWN IN WC BY VOLUNTEER.
--- NOTE | 2019-02-02 14:50 | MORECARE ---
CASE MANAGEMENT DISCHARGE SUMMARY PATIENT: EVERARDO ACEVES UNIT: [id number] ADM DATE: 01/31/19 AGE: 68 : 52 SEX: M ROOM/BED: D.2132 AUTHOR: STEFANIE FARRELL PHYSICIAN: REFERRING PHYSICIAN: ROSETTA SINGH MD DATE OF SERVICE: 02/02/19 Discharge Plan Patient Name: EVERARDO ACEVES Facility[facility]:[place] : 1950 Planned Disposition: Home Anticipated Discharge Date: Discharge Date: 02/02/2019 Expected LOS: Initial Reviewer: [email or web address] Initial Review Date: 02/02/2019 Generated: 02/02/19 3:50 pm Comments DCP- Discharge Planning Updated by [email or web address]: Denise Gillette on 02/02/19 10:[address] Patient Name: EVERARDO ACEVES Admission Status: ER Accout number: [id number] Admission Date: 01-31-2019 : 1950 Admission Diagnosis: Attending: ROSETTA SINGH Current LOS: 2 Anticipated DC Date: Planned Disposition: Home Primary Insurance: MEDICARE A & B Discharge Planning Comments: MET WITH PATIENT AND HIS ABOUT DC PLANNING/NEEDS. HE WAS DISCHARGED THURSDAY FROM HERE AND STATES STARTED HAVING ABDOMINAL PAIN AND CAME TO ER. STATES PLANS TO DC TO HOME WITH TODAY. DENIES ANY NEEDS. Overhead Distribution Engineer: Denise Gillette DCPIA - Discharge Planning Initial Assessment Updated by [email or web address]: Denise Gillette on 02/02/19 11:21 am * Is the patient Alert and Oriented? Yes * Preadmission Environment Home with Family * ADLs Independent * Additional services required to return to the preadmission environment? No * Can the patient safely return to the preadmission environment? Yes * Has this patient been hospitalized within the prior 30 days at any hospital? Yes Coverage Notice Reviewer: [email or web address] - Densie Gillette Notice Issued Date-Time: 02/02/2019 11:36 Notice Type: IM Discharge Notice Notice Delivered To: Patient Relationship to Patient: Hypertrichologist Name: Delivery Method: HAND - Hand Delivered Anum Days: Prior Verbal Notification: Recipient Understood Notice: Yes Recipient Signature: Yes Med Rec Note Co-signed by Attending: Coverage Notice Comment: Last DP export: 02/02/19 10:25 a Patient Name: EVERARDO ACEVES Page 47212 at 1450 All edits/amendments must be made on the electronic document DICTATION DATE: 02/02/191449 LAND ACQUISITION MANAGER: STEPHANI 02/02/19 145 RPT#: [id number] DC DATE:02/02/19 STATUS: DIS IN [facility] [address] [place] [address] END OF REPORT
== END 2019-02-02 14:26 | disposition home or self-care (01) | DRG 189 ==
LOC: D.ER 22:31 → D.M2 01-31 01:14
PROVIDERS: Emergency Medicine; ADMIT Internal Medicine Nephrology; ATTEND Internal Medicine Nephrology
DX: J81.1 Chronic pulmonary edema (principal); J18.9 Pneumonia, unspecified organism; E44.0 Moderate protein-calorie malnutrition; E87.6 Hypokalemia; D64.9 Anemia, unspecified; I10 Essential (primary) hypertension; E78.5 Hyperlipidemia, unspecified; E86.0 Dehydration

== ENCOUNTER 2019-09-04 13:19 | Inpatient (IN) | payer MEDICARE, BC ==
[~2019-09-04] VITALS: Ht 180.3 cm; Wt 82.9 kg
--- NOTE | ~2019-09-04 | HEMODYNAMI ---
PATIENT:EVERARDO ACEVES MEDICAL RECORD: [id number] : 54 [facility] [id number] ADMISSION DATE: 09/05/19 Generatedon:09/06/20199:58 Patient name: EVERARDO ACEVES Patient #: [id number] SSN: [id number] : 1950 Date of study: 09/06/2019 Page: Of Hemodynamic Procedure Report Patient Data Patient Demographics Procedure consent was obtained First Name: EVERARDO Gender: Male Last Name: YOLA : 1950 [facility] Initial: J Age: 69 year(s) Patient #: [id number] Race: SSN: [id number] Additional ID: [id number] Contact details Address: [address] [place] [address] [facility] State: [place] City: [place] Zip code: [address] Admission Admission Data Admission Date: 09/05/2019 Admission Time: 18:22 Arrival Date: 09/05/2019 Arrival Time: 18:22 Admit Source: Other Insurance Payor: Medicare Room #: D.2138 [facility] #: [id number] Height (in.): 70.87 BSA: 2.03 (m2) Height (cm.): 180 BMI: 25.62 (kg/m2) Weight (lbs.): 182.98 Weight (kg.): 83 Lab Results Lab Result Date: 09/06/2019 Lab Result Time: 0:00 Biochemistry Name Units Result Min Max BUN mg/dl 21 --(----)-* 7 18 Creatinine mg/dl 0.9 --(-*--)-- 0.6 1.3 CBC Name Units Result Min Max Hemoglobin g/dl 15.6 --(--*-)-- 13.5 17.5 Procedure Procedure Types Cath Procedure Diagnostic Procedure LHC LH w/Coronaries Sedation Charges Moderate Sedation up to 15 minutes Procedure Description Procedure Date Procedure Date: 09/06/2019 Procedure Start Time: 9:36 Procedure End Time: 9:56 Procedure Staff Name Function Fidel Pelaez MD Performing Physician Elizabeth Iraheta RT Monitor Mary Mccurdy RT Scrub Ramesh Barrow RN Nurse Procedure Data Cath Procedure Fluoroscopy Diagnostic fluoroscopy Total fluoroscopy Time: 4.9 time: 4.9 min min Diagnostic fluoroscopy Total fluoroscopy dose: 825 dose: 825 mGy mGy Contrast Material Contrast Material Type Amount (ml) Isovue 300 106 Entry Location Entry Primary Successful Side Size Upsize Upsize Entry Closure Succes sful Closure Location (Fr) 1 (Fr) 2 (Fr) Remarks Device Remarks Femoral Right 5 Fr Exoseal artery Estimated blood loss: 5 ml Diagnostic catheters Device Type Used For End Catheter Placement MULTIPACK JL 4.0 5Fr Left Coronary catheter Angiography DIAGNOSTIC JL 5 5Fr Left Coronary catheter ([id number]) Angiography DIAGNOSTIC JL 6 5Fr Left Coronary catheter ([id number]) Angiography MULTIPACK 3DRC 5Fr Right Coronary catheter Angiography MULTIPACK Pigtail 5 Fr LV Angiography catheter Procedure Complications No complications Procedure Medications Medication Administration Route Dosage Oxygen etCO2 Nasal cannula 2 l/min Lidocaine 2% added to field 20 Heparin Flush Bag added to field 2 bags (1000units/500ml NS) 0.9% NaCl I.V. 100 ml/hr Versed I.V. 2 mg Fentanyl I.V. 100 mcg Versed I.V. 1 mg Fentanyl I.V. 50 mcg Versed I.V. 1 mg Fentanyl I.V. 50 mcg Hemodynamics Rest BSA: 2.03 (m2) HGB: 15.6 (g/dl) O2 Consumption: Estimated: 231.42 (ml/min) O2 Co nsumption indexed: Estimated:114 (ml/min/m) Heart Rate: 64 (bpm) Pressure Samples Time Site Value (mmHg) Purpose Heart Use Rate(bpm) 9:51 LV 117/-3,13 Snapshot 71 9:52 AO 101/54(74) Pullback 65 9:52 LV 109/-3,12 Pullback 65 Gradients Valve Time Site 1 Site 2 Mean SEP/DFP Peak To Heart Use (mmHg) (sec/min) Peak Rate (mmHg) (bpm) Aortic 9:52 LV AO 16 6 8 65 109/-3,12 101/54(74) Calculations Valve P-P Mean Valve Index Valve Source Name Gradient Area Flow (cm2) Aortic 8 16 8 16 Snapshots Pre Cath Intra NCS Post Cath Vital Signs Time Heart Resp SPO2 etCO2 NIBP Rhythm Pain Sedation Rate (ipm) (%) (mmHg) (mmHg) Status Level (bpm) 9:24:45 62 17 96 0 138/80(99) NSR 0 (11) 10(A) , No pain 9:29:01 61 15 98 38.1 120/69(89) NSR 0 (11) 10(A) , No pain 9:33:17 59 14 98 41.1 113/63(85) NSR 0 (11) 10(A) , No pain 9:37:33 58 15 98 39.6 111/61(80) NSR 0 (11) 9(A) , No pain 9:41:45 64 15 97 40.4 116/70(84) NSR 0 (11) 9(A) , No pain 9:45:59 64 15 98 32.9 112/65(83) NSR 0 (11) 9(A) , No pain 9:50:13 70 15 97 41.1 107/66(76) NSR 0 (11) 9(A) , No pain 9:54:24 69 16 94 41.9 114/64(83) NSR 0 (11) 10(A) , No pain Medications Time Medication Route Dose Verified Delivered Reason Notes Effe ctiveness by by 9:29:02 Oxygen etCO2 2 Fidel Buffie used for Nasal l/min Benigno Barrow RN procedure cannula 9:29:09 Lidocaine 2% added 20ml Fidel Fidel for local to vial Benigno Pelaez MD anesthetic field 9:29:15 Heparin Flush added 2 Fidel Fidel used for Bag to bags Benigno Pelaez MD procedure (1000units/500ml field NS) 9:29:24 0.9% NaCl I.V. 100 Fidel Buffie Per ml/hr Benigno Barrow RN physician 9:30:50 Versed I.V. 2 mg Fidel Buffie for Benigno Barrow RN sedation 9:30:58 Fentanyl I.V. 100 Fidel Buffie for mcg Benigno Barrow RN sedation 9:36:27 Versed I.V. 1 mg Fidel Buffie for Benigno Barrow RN sedation 9:36:32 Fentanyl I.V. 50 Fidel Buffie for mcg Benigno Barrow RN sedation 9:47:35 Versed I.V. 1 mg Fidel Chandler for Benigno Barrow RN sedation 9:47:39 Fentanyl I.V. 50 Fidel Ramesh for [facility] Benigno Barrow RN sedation Procedure Log Time Note 8:54:33 Diagnostic Cath Status : Urgent 8:54:49 Admit Source: Other 8:55:01 Procedure Status Urgent Heart Cath (IP). 8:55:04 Time tracking: Regular hours (M-F 7:00 - 5:00) 8:55:08 Plan of Care:Hemodynamics will remain stable., Cardiac rhythm will remain stable., Comfort level will be maintained., Respiratory function will remain adequate., Patient/ family verbilizes understanding of procedure., Procedure tolerated without complication., Recovers from procedure without complications.. 9:00:00 Ramesh Barrow RN sent for patient. Start room use. 9:00:38 Martha, spouse of pt, called and updated. 9:07:50 Informed consent obtained and on chart 9:09:48 Arrival Date: 09/05/2019 6:22:00 PM 9:10:12 Insurance Payor : Medicare 9:10:22 Patient Height : 70.87 inches 9:10:26 Patient Weight : 182.98 lbs 9:11:06 Lab Result : BUN 21 mg/dl 9:11:06 Lab Result : Hemoglobin 15.6 g/dl 9:11:06 Lab Result : Creatinine 0.9 mg/dl 9:11:43 1) 90+ Normal kidney functon but urine findings or structural abnormalities or genetic trait point to kidney disease. 9:11:47 Maximum allowable contrast dose (3.7 X eGFR X 0.75)249 ml. 9:23:33 Patient received from Med II to CCL 1 Alert and oriented. Tansferred to table in Supine position. 9:23:34 Warm blankets applied, and miko hugger turned on for patient comfort. 9:23:35 Correct patient and procedure confirmed by team. 9:23:35 ECG and BP/O2 sat monitors applied to patient. 9:23:36 Vital chart was started 9:23:38 Baseline sample Acquired. 9:23:42 Rhythm: sinus rhythm 9:23:45 Full Disclosure recording started 9:23:49 H&P Date Dictated: 09/06/2019 New H&P dictated by physician.. 9:23:51 Pre-procedure instructions explained to patient. 9::52 Pre-op teaching completed and patient verbalized understanding. 9::53 Family unavailable. 9::55 Patient NPO since Midnight. 9::58 Is the patient allergic to Iodine/contrast media? No. 9:23:59 Was the patient premedicated? Yes 9:24:00 Is patient on blood thinner?No 9:24:11 Patient diabetic? No. 9:24:15 Previous problem with sedation/anesthesia? No ? 9:24:17 Snore? No 9:24:20 Sleep apnea? No 9:24:21 Deviated septum? No 9:24:24 Opens mouth fully? Yes 9:24:24 Sticks out tongue? Yes 9:24:26 Airway obstruction? No ? 9:24:29 Dentures? No ? 9:24:33 Pre procedure: right dorsailis pedis pulse 2+ Normal; easily identifiable; not easily obliterated 9:24:36 Pre procedure: left dorsailis pedis pulse 2+ Normal; easily identifiable; not easily obliterated 9:24:38 Patient pain scale 0/10 ?. 9:24:44 IV patent on arrival in left forearm with 0.9% NaCl at [facility]. 9:24:47 Lab results completed and on chart. 9:28:47 Stress Test: yes; abnormal ANTEROLATERAL 9::51 Risk of Mortality: 0.1 9::53 Risk of blood transfusion: 0.1 9:28:57 Risk of GAIL: 0.3 9:29:02 Oxygen 2 l/min etCO2 Nasal cannula was administered by Ramesh Barrow RN; used for procedure; Verbal order read back and verified. 9:29:02 Right groin area was prepped with chlora-prep and draped in sterile fashion 9:29:03 Alarms reviewed by R. N. 9:29:03 Sharps counted by scrub and verified by R.N. 9:29:05 Physician arrived 9:29:06 --------ALL STOP TIME OUT------ 9:29:07 Final Timeout: patient, procedure, and site verified with staff and physician. All members of the team are in agreement. 9:29:09 Lidocaine 2% 20ml vial added to field was administered by Fidel Pelaez MD; for local anesthetic; Verbal order read back and verified. 9:29:10 Right groin site verified by team. 9:29:13 Fire Safety Assessment: A--An alcohol-based skin anteseptic being used preoperatively., C--Open oxygen or nitrous oxide is being used., D--An ESU, laser, or fiber-optic light is being used. 9:29:15 Heparin Flush Bag (1000units/500ml NS) 2 bags added to field was administered by Fidel Pelaez MD; used for procedure; Verbal order read back and verified. 9:29:17 Physical assessment completed. ASA score P 2 - A patient with mild systemic disease as per Fidel Pelaez MD. 9:29:22 Sedation plan: IV Moderate Sedation Medication:Versed, Fentanyl 9:29:24 0.9% NaCl 100 ml/hr I.V. was administered by Ramesh Barrow RN; Per physician; Verbal order read back and verified. 9:29:25 Use device set Femoral Dx 9:29:27 ACIST Syringe (89933) opened to sterile field. 9:29:27 Bag Decanter (2002S) opened to sterile field. 9:29:27 Medline Cath Pack ([id number]) opened to sterile field. 9:29:29 ACIST Hand Control (96228) opened to sterile field. 9:29:29 ACIST Manifold (93001) opened to sterile field. 9:29:29 DIAGNOSTIC Multipack 5Fr catheter set ([id number]) opened to sterile field. 9:29:30 Tegaderm 4 x 4 (1626W) opened to sterile field. 9:29:31 SHEATH 5FR [place] (QAB384) opened to sterile field. 9:29:32 EMERALD Guide Wire (959-955) opened to sterile field. 9:30:50 Versed 2 mg I.V. was administered by Ramesh Barrow RN; for sedation; Verbal order read back and verified. 9:30:58 Fentanyl 100 mcg I.V. was administered by Ramesh Barrow RN; for sedation; Verbal order read back and verified. 9:36:27 Versed 1 mg I.V. was administered by Ramesh Barrow RN; for sedation; Verbal order read back and verified. 9:36:32 Fentanyl 50 mcg I.V. was administered by Ramesh Barrow RN; for sedation; Verbal order read back and verified. 9:36:36 Zero performed for pressure channel P1 9:36:43 Procedure started. 9:36:48 Local anesthetic to right femoral artery with Lidocaine 2% by Fidel Pelaez MD.INITIAL ACCESS ONLY 9:37:00 A 5 Fr sheath was inserted into the Right Femoral artery 9:38:14 A MULTIPACK JL 4.0 5Fr catheter was advanced over the wire and used for Left Coronary Angiography. 9:39:06 LCA angiography performed. 9:39:09 Injector settings: Ml/sec: 3, Volume: 6, 9:40:45 Catheter removed. 9:41:00 A DIAGNOSTIC JL 5 5Fr catheter ([id number]) was advanced over the wire and used for Left Coronary Angiography. 9:43:46 Catheter removed. unable to cannulate vessel. 9:44:52 A DIAGNOSTIC JL 6 5Fr catheter ([id number]) was advanced over the wire and used for Left Coronary Angiography. 9:46:35 LCA angiography performed. 9:46:38 Injector settings: Ml/sec: 3, Volume: 6, 9:47:35 Versed 1 mg I.V. was administered by Ramesh Barrow RN; for sedation; Verbal order read back and verified. 9:47:39 Fentanyl 50 mcg I.V. was administered by Ramesh Barrow RN; for sedation; Verbal order read back and verified. 9:47:58 Catheter removed. 9:48:08 A MULTIPACK 3DRC 5Fr catheter was advanced over the wire and used for Right Coronary Angiography. 9:48:57 RCA angiography performed. 9:49:01 Injector settings: Ml/sec: 3, Volume: 6, 9:50:11 Catheter removed. 9:50:17 A MULTIPACK Pigtail 5 Fr catheter was advanced over the wire and used for LV Angiography. 9:50:23 EXOSEAL 5Fr (EX500) opened to sterile field. 9:50:31 ACCDominant side:Right 9:51:51 LV hemodynamics recorded. 9:51:52 LV gram done using ELIZONDO 9:51:55 Injector settings: Ml/sec: 5, Volume: 15, 9:52:04 EF : 60 % 9:52:36 Catheter removed. 9:52:50 Sheath removed intact; hemostasis achieved with Exoseal to the Right Femoral artery. 9:53:38 Procedure ended.(Physican Out) 9:53:49 Fluoroscopy time 04.90 minutes. 9:53:55 Fluoroscopy dose: 825 mGy 9:53:55 Flurop Dose total: 825 9:54:00 Dose Area Product 17150 mGy/cm. 9:54:24 Contrast amount:Isovue 300 106ml. 9:54:27 Maximum allowable dose exceeded? No. 9:54:32 Sharps counted by scrub and verified by R.N. 9:54:35 Insertion/operative site no bleeding no hematoma. 9:54:38 Post-op/insertion site Right Femoral artery dressed using a 4 x 4 and Tegaderm. 9:55:08 Post Procedure Pulses reassessed and unchanged 9:55:12 Post procedure rhythm: unchanged. 9:55:41 Estimated blood loss: 5 ml 9:55:43 Post procedure instruction explained to patient.Patient verbalizes understanding. 9:55:44 Patient needs reinforcement of post procedure teaching. 9:56:00 Procedure type changed to Cath procedure, Diagnostic procedure, LHC, [facility] w/Coronaries, Sedation Charges, Moderate Sedation up to 15 minutes 9:56:01 Procedure and supply charges have been captured, reviewed, submitted and are correct. 9:56:05 Procedure Complication : No complications 9:56:08 Vital chart was stopped 9:56:11 [facility] Findings: MVD- CABG consult 9:56:15 Operative report dictated upon procedure completion. 9:56:15 See physician's report for complete and final results. 9:56:19 Report given to [facility]. 9:56:23 Patient transfered to [facility] with Stretcher. 9:56:25 Procedure ended. 9:56:25 Full Disclosure recording stopped 9:56:29 End room use (Document Last) 9:57:35 End room use (Document Last) Device Usage Item Name Manufacture Quantity Catalog Hospital Part Current Minimal L ot# / Number Charge Number Stock Stock Serial# Code ACIST Acist 1 12063 087894 883886 740368 20 Syringe Amtec (72930) Systems Inc Bag Microtek 1 079119 02967 141426 5 Decanter Medical Inc. () Medline Medline 1 [id number] 789588 79587 342335 5 Cath Pack ([id number]) ACIST Hand Acist 1 35446 632828 003637 539825 5 Control Medical (26830) Systems Inc ACIST Acist 1 30852 709951 106753 156613 5 Manifold Medical (55443) Systems Inc DIAGNOSTIC Cardinal 1 [id number] 692174 30497 236156 30 Multipack Health 5Fr catheter set (QY0567) Tegaderm 4 3M 1 1626W 556963 382392 000769 5 x 4 (1626W) SHEATH 5FR Terumo 1 FXV832 074724 921448 085177 5 [place] (PEW218) EMERALD Cardinal 1 502-455 530510 945687 646527 5 Guide Wire Health (502-455) MULTIPACK Cardinal 1 242669 5 JL 4.0 5Fr Health catheter DIAGNOSTIC Cardinal 1 [id number] 507301 858617 258701 5 JL 5 5Fr Health catheter (332957S) DIAGNOSTIC Cardinal 1 [id number] 735524 523415 793917 5 JL 6 5Fr Health catheter (816273T) MULTIPACK Cardinal 1 672976 5 3DRC 5Fr Health catheter MULTIPACK Cardinal 1 974475 5 Pigtail 5 Health Fr catheter EXOSEAL 5Fr Cardinal 1 EX500 239915 994452 813227 10 (EX500) Health Signature Audit [place] Stage Time Signature Unsigned Intra-Procedure 09/06/2019 Elizabeth Iraheta 9:56:55 AM RT(R) Intra-Procedure 09/06/2019 Ramesh Barrow RN 9:57:35 AM Intra-Procedure 09/06/2019 Fidel Pelaez MD 9:57:[address] [address]
[~2019-09-04 13:19] MED LIST changes: +MIRALAX17 GM PO
[2019-09-04 13:49] LABS: BASOPHILS 0.1 % (0-2); HEMATOCRIT 48.6 % (42.0-54.0); HEMOGLOBIN 16.4 g/dL (13.5-17.5); IMMATURE GRANULOCYTES 0.2 % (0-5); LYMPHOCYTES 4.2 % (15-50); MCH 32.5 pg (26.0-34.0); MCHC 33.7 g/dL (31.0-37.0); MCV 96.4 fL (80.0-100.0); MEAN PLATELET VOLUME 9.6 fL (7.4-10.4); MONOCYTES 7.6 % (2-11); NEUTROPHILS 86.9 % (40-80); PLATELET COUNT 167 10x3/uL (130-400); RBC 5.04 10x6/uL (4.20-6.10); RDW 12.4 % (11.5-14.5); WBC 8.9 10x3/uL (4.8-10.8)
[2019-09-04 13:56] LABS: APTT 26.1 SECONDS (22.8-39.4); CALC OSMOLALITY 276 mosm/kg (275-300); CALCIUM 8.8 mg/dL (8.5-10.1); CARBON DIOXIDE 25.8 mmol/L (21.0-32.0); CHLORIDE - SERUM 101 mmol/L (98-107); GLUCOSE 114 mg/dL (74-106); INR 1.09 (0.85-1.17); POTASSIUM - SERUM 3.8 mmol/L (3.5-5.1); SODIUM 135 mmol/L (136-145); UREA NITROGEN 29 mg/dL (7-18); eGFR NON AFRICAN AMERICAN 79 mL/min (90-120)
[2019-09-04 14:12] LABS: ALBUMIN 4.1 g/dL (3.4-5.0); ALKALINE PHOSPHATASE 77 U/L (30-120); ALT (SGPT) 21 U/L (10-68); BILIRUBIN - TOTAL 1.37 mg/dL (0.2-1.3); CKMB 1.1 U/L (0.0-3.6); CREATINE KINASE 64 UL (21-232); MAGNESIUM - SERUM 2.3 mg/dL (1.8-2.4); PROTEIN - SERUM 7.5 g/dL (6.4-8.2)
[2019-09-04 14:34] LABS: TROPONIN-I < 0.017 ng/mL (0.000-0.060)
[2019-09-04 15:42] LABS: CKMB 0.9 U/L (0.0-3.6); CREATINE KINASE 58 UL (21-232)
[2019-09-04 15:52] LABS: TROPONIN-I < 0.017 ng/mL (0.000-0.060)
[2019-09-04] MEDS ORDERED: PRAVACHOL20 MG PO (17:15)
[2019-09-04 17:21] VITALS: BP 108/63; BMI 25.5
--- NOTE | 2019-09-04 19:36 | NUR ---
RECIEVED UP IN BED WITH EYES OPEN AND TV ON. ALERT AND ORIENTED X4. UP AD ISAMAR. DENIES ANY PAIN AT THIS TIME. IV TO RT FA SL. ON ROOM AIR. DENIES ANY NEEDS AT THIS TIME.
[2019-09-04 20:41] VITALS: BP 109/59
[2019-09-04 23:04] LABS: CKMB 0.8 U/L (0.0-3.6); CREATINE KINASE 51 UL (21-232)
[2019-09-04 23:09] LABS: TROPONIN-I < 0.017 ng/mL (0.000-0.060)
--- NOTE | 2019-09-04 23:14 | NUR ---
RECEIVED LABS. TROPONIN AND CK-MB WNL.
[2019-09-05 04:33] VITALS: BP 128/74
[2019-09-05 05:58] LABS: BASOPHILS 0.2 % (0-2); EOSINOPHILS 2.9 % (0-7); HEMATOCRIT 48.1 % (42.0-54.0); IMMATURE GRANULOCYTES 0.2 % (0-5); LYMPHOCYTES 15.7 % (15-50); MCH 31.7 pg (26.0-34.0); MCHC 33.3 g/dL (31.0-37.0); MCV 95.2 fL (80.0-100.0); MONOCYTES 13.2 % (2-11); NEUTROPHILS 67.8 % (40-80); PLATELET COUNT 172 10x3/uL (130-400); RBC 5.05 10x6/uL (4.20-6.10); RDW 12.4 % (11.5-14.5)
[2019-09-05 06:05] LABS: WBC 5.9 10x3/uL (4.8-10.8)
[2019-09-05 06:22] LABS: CKMB 0.5 U/L (0.0-3.6); CREATINE KINASE 44 UL (21-232); TROPONIN-I < 0.017 ng/mL (0.000-0.060)
[2019-09-05 06:50] LABS: CALC OSMOLALITY 278 mosm/kg (275-300); CALCIUM 8.6 mg/dL (8.5-10.1); CARBON DIOXIDE 23.7 mmol/L (21.0-32.0); CHLORIDE - SERUM 102 mmol/L (98-107); CREATININE - SERUM 0.8 mg/dL (0.6-1.3); GLUCOSE 95 mg/dL (74-106); POTASSIUM - SERUM 3.9 mmol/L (3.5-5.1); SODIUM 138 mmol/L (136-145); UREA NITROGEN 20 mg/dL (7-18); eGFR NON AFRICAN AMERICAN > 90 mL/min (90-120)
[2019-09-05 07:51] VITALS: BP 122/68
--- NOTE | 2019-09-05 12:29 | MORECARE ---
CASE MANAGEMENT DISCHARGE SUMMARY PATIENT: EVERARDO ACEVES UNIT: [id number] ADM DATE: 09/04/19 AGE: 69 : 52 SEX: M ROOM/BED: D.1008 AUTHOR: BUDDOC PHYSICIAN: REFERRING PHYSICIAN: ROSETTA SINGH MD DATE OF SERVICE: 09/05/19 Discharge Plan Patient Name: EVERARDO ACEVES Facility: [facility]:[place] : 1950 Planned Disposition: Home Anticipated Discharge Date: 09/05/19 Discharge Date: Expected LOS: 1 Initial Reviewer: [email or web address] Initial Review Date: 09/04/2019 Generated: 09/05/19 1:28 pm Comments DCP- Discharge Planning Updated by [email or web address]: Erica Phipps on 09/05/19 11:[address] Patient Name: EVERARDO ACEVES Admission Status: ER Accout number: [id number] Admission Date: 09-04-2019 : 1950 Admission Diagnosis: Attending: ROSETTA SINGH Current LOS: 1 Anticipated DC Date: 09-05-2019 Planned Disposition: Home Primary Insurance: MEDICARE A & B Discharge Planning Comments: CM phoned patient (he is in isolation and I cannot go in room due to covid 19 protocol) to complete initial dc planning assessment. CM educated patient on the CM role and verbal consent given by patient to complete assessment. Patient lives at home with spouse. At discharge patient plans to return and feels this is a safe discharge. CM discussed availability of home health, rehab services, and medical equipment. Patient denied known discharge needs at this time. CM will continue to follow and will assist as needed with dc plans/needs. Altitude Chamber Technician: Erica Phipps DCPIA - Discharge Planning Initial Assessment Updated by [email or web address]: Erica Phipps on 09/05/19 12:23 pm * Is the patient Alert and Oriented? Yes * How many steps to enter\exit or inside your home? 0/0 * PCP Dr. Pope * Pharmacy [facility] [address] * Preadmission Environment Home with Family * ADLs Independent * Equipment None * List name and contact numbers for known caregivers / representatives who currently or will assist patient after discharge: Martha Aceves - spouse - [phone] * Verbal permission to speak to the caregivers and representatives has been obtained from the patient. Yes * Community resources currently utilized None * Additional services required to return to the preadmission environment? No * Can the patient safely return to the preadmission environment? Yes * Has this patient been hospitalized within the prior 30 days at any hospital? No Coverage Notice Reviewer: [email or web address] Denise Phipps Notice Issued Date-Time: 09/05/2019 12:16 Notice Type: Medicare Outpatient Observation Notice Notice Delivered To: Patient Relationship to Patient: Self Puppet Maker Name: Delivery Method: PHONE - Phone Anum Days: Prior Verbal Notification: Recipient Understood Notice: Yes Recipient Signature: Med Rec Note Co-signed by Attending: Coverage Notice Comment: JIGNA explained over the phone per Covid - 19 protocol, given to patient by primary nurse. Patient Name: EVERARDO ACEVES Page 14599 at 1229 All edits/amendments must be made on the electronic document DICTATION DATE: 09/05/19 1228 MORTGAGE COORDINATOR: STEPHANI 09/05/19 1228 RPT#: [id number] DC DATE: STATUS: ADM IN [facility] [address] [place] [address] END OF REPORT
--- NOTE | 2019-09-05 13:43 | NUR ---
[facility] MEDICAL RECORDS CALLED FOR COVID RESULTS. NO RESULTS AVAILABLE OF YET. WILL CONT TO FOLLOW UP.
--- NOTE | 2019-09-05 14:54 | NUR ---
TALKED TO [facility] MEDICAL RECORDS PRIOR TO CLOSE OF DAY AND STILL NO RESULTS FOR COVID TESTING. STATES MAY CALL EARLY IN AM AND TRY AGAIN.
[2019-09-05 15:53] LABS: CHOL - HDL RATIO 1.8 ratio (2.3-4.9); LDL-HDL RATIO 0.7 ratio (1.5-3.5)
--- NOTE | 2019-09-05 16:08 | NUR ---
PT CONSENTS SIGNED FOR [employer] CONSULTANT IN MORNING. NPO AFTER MN. NO ALLERGIES, CREATININE WNL.
[2019-09-05 17:06] VITALS: BP 136/72
[2019-09-06 04:55] LABS: BASOPHILS 0.2 % (0-2); EOSINOPHILS 4.5 % (0-7); HEMATOCRIT 46.4 % (42.0-54.0); HEMOGLOBIN 15.6 g/dL (13.5-17.5); IMMATURE GRANULOCYTES 0.2 % (0-5); LYMPHOCYTES 24.8 % (15-50); MCHC 33.6 g/dL (31.0-37.0); MCV 95.1 fL (80.0-100.0); MEAN PLATELET VOLUME 10.1 fL (7.4-10.4); MONOCYTES 17.4 % (2-11); NEUTROPHILS 52.9 % (40-80); PLATELET COUNT 184 10x3/uL (130-400); RBC 4.88 10x6/uL (4.20-6.10); RDW 12.3 % (11.5-14.5); WBC 5.5 10x3/uL (4.8-10.8)
[2019-09-06 05:11] LABS: CALC OSMOLALITY 278 mosm/kg (275-300); CALCIUM 8.5 mg/dL (8.5-10.1); CARBON DIOXIDE 25.2 mmol/L (21.0-32.0); CHLORIDE - SERUM 104 mmol/L (98-107); CREATININE - SERUM 0.9 mg/dL (0.6-1.3); GLUCOSE 99 mg/dL (74-106); POTASSIUM - SERUM 3.6 mmol/L (3.5-5.1); SODIUM 138 mmol/L (136-145); UREA NITROGEN 21 mg/dL (7-18); eGFR NON AFRICAN AMERICAN 89 mL/min (90-120)
[2019-09-06 06:32] VITALS: BP 125/68
--- NOTE | 2019-09-06 07:00 | NUR ---
RECEIVED REPORT. ASSUMED CARE OF PATIENT. PATIENT REMAINS IN ISOLATION FOR COVID-19, AWAITING RESULTS. PATIENT IS SCHEDULED FOR HEART CATH THIS AM. SASH REPAIRER ASSISTING TO TRY AND RECEIVED TEST RESULTS OF COVID-19 THAT WAS TAKEN BY A [facility] ON 09/03/19.
[2019-09-06 08:00] VITALS: BP 122/74
--- NOTE | 2019-09-06 08:22 | NUR ---
NEGATIVE RESULT FOR COVID RECEIVED AND SPOKE WITH BLANQUITA, PATIENT IS ABLE TO COME OUT OF ISOLATION.
--- NOTE | 2019-09-06 08:42 | NUR ---
PREOP'T FOR HEART CATH. SR UP FOR SAFETY. NO DISTRESS.
--- NOTE | 2019-09-06 09:13 | NUR ---
PATIENT LEFT UNIT VIA BED FOR MUSHROOM GROWER AT THIS TIME. NO DISTRESS.
--- NOTE | 2019-09-06 10:07 | NUR ---
RECEIVED REPORT FROM JULISSA IN THE MOTOR REBUILDER. PATIENT BACK TO UNIT SOON.
--- NOTE | 2019-09-06 10:23 | NUR ---
PATIENT RETURNED TO UNIT VIA BED. PERIPHERAL PULSES PATENT, NO HEMATOMA TO RIGHT GROIN, DRESSING CLEAN AND INTACT. PATIENT ALERT AND THIRSTY. NO DISTRESS. BP 116/66, HR 60
[2019-09-06 11:28] VITALS: BP 119/66
--- NOTE | 2019-09-06 12:00 | NUR ---
RESTING IN BED WITH EYES OPEN, CONVERSING ON TELEPHONE. NO DISTRESS. CALL LIGHT WITHIN REACH. PERIPHERAL PULSES PATENT, NO S/S HEMATOMA FROM RIGHT GROIN. NO DISTRESS.
[2019-09-06 13:44] LABS: HEMATOCRIT 44.2 % (42.0-54.0); HEMOGLOBIN 14.9 g/dL (13.5-17.5); MCH 32.3 pg (26.0-34.0); MCHC 33.7 g/dL (31.0-37.0); MCV 95.7 fL (80.0-100.0); RBC 4.62 10x6/uL (4.20-6.10); RDW 12.4 % (11.5-14.5); WBC 5.6 10x3/uL (4.8-10.8)
[2019-09-06 14:15] LABS: INR 1.04 (0.85-1.17); PROTIME 13.5 SECONDS (11.6-15.0)
[2019-09-06 14:16] LABS: APTT 29.3 SECONDS (22.8-39.4)
--- NOTE | 2019-09-06 14:43 | NUR ---
HEPARIN 5000 BOLUS ADMINISTERED AND HEPARIN GTT INFUSING AT 1000 UNITS/HR. PATIENT LYING IN BED. NO DISTRESS. CALL LIGHT WITHIN REACH.
--- NOTE | 2019-09-06 16:00 | NUR ---
RESERVE LEFT ARM SIGNS PLACED.
[2019-09-06 16:10] VITALS: BP 118/69; BP 119/64
--- NOTE | 2019-09-06 17:20 | NUR ---
PATIENT COMPLETED PM MEAL. SITTING UP IN BED. CALL LIGHT WITHIN REACH. HEPARIN INFUSING TO RIGHT FA ORDERED. NO DISTRESS.
--- NOTE | 2019-09-06 19:15 | NUR ---
PT UP AD ISAMAR NEEDS MET HEP GTT AT 10 BED LOW AND LOCKED PT WITH CALL LIGHT
[2019-09-06 20:05] LABS: INR 1.01 (0.85-1.17); PROTIME 13.2 SECONDS (11.6-15.0)
[2019-09-06 20:53] LABS: APTT 49.2 SECONDS (22.8-39.4)
--- NOTE | 2019-09-06 21:08 | NUR ---
PTT RESULT 49.2 INCREASED HEP GTT TO 1100 UNITS PER/HR
[2019-09-06 22:16] VITALS: BP 116/56
[2019-09-07 00:40] VITALS: BP 107/50
--- NOTE | 2019-09-07 02:34 | NUR ---
PTT 43.0 INCREASED HEP GTT TO 1200 units/HR
[2019-09-07 05:29] VITALS: BP 119/62
[2019-09-07 05:55] LABS: BASOPHILS 0.2 % (0-2); EOSINOPHILS 5.7 % (0-7); HEMOGLOBIN 14.6 g/dL (13.5-17.5); LYMPHOCYTES 32.2 % (15-50); MCV 94.3 fL (80.0-100.0); MEAN PLATELET VOLUME 10.4 fL (7.4-10.4); MONOCYTES 11.8 % (2-11); NEUTROPHILS 50.1 % (40-80); PLATELET COUNT 164 10x3/uL (130-400); RBC 4.56 10x6/uL (4.20-6.10); RDW 12.3 % (11.5-14.5); WBC 5.8 10x3/uL (4.8-10.8)
[2019-09-07 06:10] LABS: CALC OSMOLALITY 279 mosm/kg (275-300); CALCIUM 8.4 mg/dL (8.5-10.1); CARBON DIOXIDE 25.6 mmol/L (21.0-32.0); CHLORIDE - SERUM 106 mmol/L (98-107); CREATININE - SERUM 0.8 mg/dL (0.6-1.3); GLUCOSE 99 mg/dL (74-106); POTASSIUM - SERUM 3.8 mmol/L (3.5-5.1); SODIUM 140 mmol/L (136-145); eGFR NON AFRICAN AMERICAN > 90 mL/min (90-120)
[2019-09-07 06:13] LABS: UREA NITROGEN 15 mg/dL (7-18)
--- NOTE | 2019-09-07 07:30 | NUR ---
AM ROUNDS COMPLETED. INTRODUCED MYSELF TO PT PRIMARY RN FOR TODAYS SHIFT. SHIFT ASSESSMENT COMPLETED. PT DENIES ANY CHEST PAIN OR CURRENT NEEDS. HEPARIN INFUSING AT 12ML/HR VIA R.FA AT THIS TIME. PT APPARENTLY IS GOING FOR OPEN HEART SURGERY TOMORROW WITH AND DENIES ANY QUESTIONS OR CONCERNS. WILL REVIEW CHART AND ORDERS AND CPOC.
[2019-09-07 08:40] VITALS: BP 109/61
--- NOTE | 2019-09-07 09:35 | NUR ---
PTS APTT BACK AND RATE INCREASED BY 100 UNITS/HR. HEPARIN DRIP NOW INFUSING @13ML/HR. WILL ORDER REPEAT APTT FOR 6HRS PER IV HEPARIN INFUSIN ORDERS. PT SITTING UP IN BEDSIDE CHAIR RESTING QUIETLY TALKING ON PHONE. NO CURRENT NEEDS.
--- NOTE | 2019-09-07 11:15 | NUR ---
EKG PERFORMED ORDERED AND PLACED IN CHART.
[2019-09-07 11:29] VITALS: BP 132/72
--- NOTE | 2019-09-07 14:30 | NUR ---
HEPARIN BAG COMPLETED. NEW BAG INITIATED. PT IS STANDING UP AT HIS SINK SHAVING. PROVIDED PT WITH FRESH ICE WATER. PT VOICED THANKS AND DENIES ANY FURTHER NEEDS AT THIS TIME. CL IN REACH. WILL CPOC.
[2019-09-07 15:58] LABS: INR 1.07 (0.85-1.17); PROTIME 13.8 SECONDS (11.6-15.0)
[2019-09-07 16:00] VITALS: BP 119/62
[2019-09-07 16:00] LABS: APTT 60.1 SECONDS (22.8-39.4)
[2019-09-07 16:26] LABS: ALBUMIN 3.2 g/dL (3.4-5.0); ALKALINE PHOSPHATASE 62 U/L (30-120); ALT (SGPT) 17 U/L (10-68); BILIRUBIN - TOTAL 0.26 mg/dL (0.2-1.3); CALC OSMOLALITY 283 mosm/kg (275-300); CALCIUM 8.6 mg/dL (8.5-10.1); CARBON DIOXIDE 24.1 mmol/L (21.0-32.0); CHLORIDE - SERUM 107 mmol/L (98-107); CHOLESTEROL, TOTAL 115 mg/dL (0-200); CREATININE - SERUM 0.9 mg/dL (0.6-1.3); GLUCOSE 96 mg/dL (74-106); PROTEIN - SERUM 6.5 g/dL (6.4-8.2); SODIUM 142 mmol/L (136-145); T4 THYROXIN - FREE 1.11 ng/dL (0.76-1.46); THYROID STIMULATING HORMONE 2.09 uIU/mL (0.36-3.74); UREA NITROGEN 15 mg/dL (7-18); eGFR NON AFRICAN AMERICAN 89 mL/min (90-120)
--- NOTE | 2019-09-07 16:51 | NUR ---
INCREASED PTS HEPARIN DRIP BY 100UNITS. HEPARIN NOW INFUSING @14ML/HR. CONSENT OBTAINED FOR PLANNED PROCEDURE TOMORROW. PT SITTING UP ON EDGE OF BED EATING DINNER. NO IMMEDIATE NEEDS NOTED. URINE SAMPLE NEEDED AND EXPLAINED TO PT. WILL CPOC.
[2019-09-07 17:41] LABS: BILIRUBIN NEGATIVE (NEGATIVE); GLUCOSE NEGATIVE (NEGATIVE); KETONE NEGATIVE (NEGATIVE); NITRITE NEGATIVE (NEGATIVE); UROBILINOGEN NORMAL (NORMAL)
[2019-09-07 20:00] VITALS: BP 143/77
[2019-09-08] VITALS (43 sets, daily range): BP systolic 94–128; BP diastolic 45–70
--- NOTE | 2019-09-08 04:00 | NUR ---
HEPARIN DRIP DISCONTINUED AND PTS IV SALINE LOCKED PER ORDER.
[2019-09-08 05:58] LABS: BASOPHILS 0.3 % (0-2); EOSINOPHILS 4.3 % (0-7); HEMOGLOBIN 15.4 g/dL (13.5-17.5); IMMATURE GRANULOCYTES 0.1 % (0-5); MCH 32.2 pg (26.0-34.0); MCHC 34.2 g/dL (31.0-37.0); MCV 93.9 fL (80.0-100.0); MEAN PLATELET VOLUME 9.6 fL (7.4-10.4); MONOCYTES 8.8 % (2-11); NEUTROPHILS 57.5 % (40-80); PLATELET COUNT 180 10x3/uL (130-400); RBC 4.79 10x6/uL (4.20-6.10); WBC 6.7 10x3/uL (4.8-10.8)
[2019-09-08 06:23] LABS: CALC OSMOLALITY 280 mosm/kg (275-300); CALCIUM 9.2 mg/dL (8.5-10.1); CARBON DIOXIDE 25.6 mmol/L (21.0-32.0); CHLORIDE - SERUM 105 mmol/L (98-107); CREATININE - SERUM 0.9 mg/dL (0.6-1.3); GLUCOSE 104 mg/dL (74-106); POTASSIUM - SERUM 3.8 mmol/L (3.5-5.1); SODIUM 141 mmol/L (136-145); UREA NITROGEN 13 mg/dL (7-18); eGFR NON AFRICAN AMERICAN 89 mL/min (90-120)
[2019-09-08 14:08] LABS: BASOPHILS 0.1 % (0-2); EOSINOPHILS 0.5 % (0-7); HEMOGLOBIN 13.6 g/dL (13.5-17.5); IMMATURE GRANULOCYTES 0.2 % (0-5); LYMPHOCYTES 7.7 % (15-50); MCH 32.2 pg (26.0-34.0); MCV 94.6 fL (80.0-100.0); MEAN PLATELET VOLUME 9.6 fL (7.4-10.4); MONOCYTES 12.6 % (2-11); NEUTROPHILS 78.9 % (40-80); PLATELET COUNT 140 10x3/uL (130-400); RBC 4.23 10x6/uL (4.20-6.10); RDW 12.2 % (11.5-14.5); WBC 14.2 10x3/uL (4.8-10.8)
[2019-09-08 14:20] LABS: INR 1.26 (0.85-1.17); PROTIME 15.7 SECONDS (11.6-15.0)
[2019-09-08 14:27] LABS: APTT 33.1 SECONDS (22.8-39.4)
--- NOTE | 2019-09-08 14:54 | NUR ---
PT ARRIVED TO ROOM APPROX 1340 SEDATED ON VENT, OPENS EYES, PLACED ON VENT AND ETT SECURED BY RT, R IJ CVL DRESSING CDI, SEE IV FLOWSHEET, MIDSTERNAL AND SUBSTERNAL DRESSING CDI WITH SUBSTERNAL CTX2 20CM SUCTION, NO AIR LEAK, AIXA DRAIN COMPRESSED, LLE HARVEST SITES WITH COBAN GROIN TO ANKLE, FABINA AND SCDS ON RLE, CRITICORE BAILEY DRAINING YELLOW URINE, AMIODARONE DCD PER DR BALDWIN ABGS CALLED TO DR BALDWIN [address] BALDWIN OF HR 59 ORDERS FOR DOPAMINE 1454 NOTIFIED OF OCCASIONAL PVCS SINCE STARTING DOPAMINE BUT HR UP TO 64, ORDERS FOR 10KCL, GIVEN FROM EXISTING BAG
--- NOTE | 2019-09-08 16:12 | NUR ---
ABGS CALLED TO DR BALDWIN ORDERS TO EXTUBATE AND ANASTACIA SOUZA
--- NOTE | 2019-09-08 16:22 | NUR ---
PT EXTUBATED AND RESTRAINTS REMOVED 1515, ORDERS TO INCREASE DOPAMINE TO 3MCG AND GIVE 250 OF PLASMALYTE OVER 30 MIN. GIVEN FROM EXISTING BAG
--- NOTE | 2019-09-08 19:00 | NUR ---
REPORT RECEIVED AT BEDSIDE, SHIFT ASSESSMENT COMPLETED PER FLOW SHEET, PT AWAKE AND ALERT, ANSWERES ALL QUESTIONS APPROPRIATLY, C/O ACHING INCISIONAL DISCOMFORT, REPOSITIONED FOR COMFORT, ELEVATED HOB, RT IJ CVL PATENT DRSG C/D/I, RT RADIAL ART LINE IN PLACE AND ZEROED GOOD WAVEFORM NOTED ON CM, MIDSTERNAL INCISION DRSG C/D/I, SUBSTERNAL CT x2 TO 20cm SUCTION NO AIR LEAK NOTED, AIXA DRAIN COMPRESSED, TPM WIRES COILED, SUBSTERNAL DRSG C/D/I, I/S TEACHING PROVIDED AND RETURN DEMONSTRATION BY PT [id number] GOOD EFFORT, CRITICORE BAILEY CATH WITH CLEAR YELLOW URINE NOTED, LLE HARVEST SITES WITH COBAN DRSG FROM GROIN TO ANKLE C/D/I, ALL PULSES PALPABLE, VSS, NSR ON CM, LARGE CUP ICE WATER GIVEN PER REQUEST, NO SWALLOWING DIFFICULTY NOTED WITH FLUIDS OR MEDS, FALL PREVENTION AND CALL LIGHT USE TEACHING PROVIDED, BED ALARM ON, CALL LIGHT IN REACH, WILL CONTINUE TO MONITOR
--- NOTE | 2019-09-08 22:00 | NUR ---
PT RESTING COMFORTABLY IN BED, VSS, NSR ON CM, I/S COMPLETED 750-1000ML WITH GOOD EFFORT, TCDB DONE, LARGE CUP ICE WATER GIVEN PER REQUEST, PT DENIES OTHER NEEDS AT THIS TIME, WILL CONTINUE TO MONITOR
--- NOTE | 2019-09-08 22:32 | NUR ---
CALLED [facility], PASSWORD CONFIRMED, UPDATE GIVEN, HAD QUESTIONS R/T PAIN CONTROL, ADDRESSED ALL QUESTIONS OR CONCERNS, PROVIDED WITH [facility] PHONE NUMBER AND INFORMED HER TOO CALL IF SHE HAS ANY FURTHER QUESTIONS, DENIES FURTHER NEEDS AT THIS TIME, WILL CONTINUE TO MONITOR
--- NOTE | 2019-09-08 23:30 | NUR ---
PT REPOSITIONED AND DANGLED AT BEDSIDE PER ORDERS WITH RNx2 AT SIDE, PT TOLLERATED MOVEMENT AND DANGLING WITH NO S/S OF ACUTE DISTRESS, VSS, NSR ON CM, I/S AND TCDB COMPLETED, PT CALM AND COOPERATIVE THROPUGHOUT, DENIES PAIN OR NEEDS, REPOSITIONED BACK IN BED FOR COMFORT, HOB ELEVATED, VSS, WILL CONTINUE TO MONITOR
[2019-09-09] VITALS (59 sets, daily range): BP systolic 90–120; BP diastolic 42–71; Ht 180.3 cm; Wt 82.9 kg
--- NOTE | 2019-09-09 03:30 | NUR ---
PT DANGLED ON BEDSIDE PER ORDERS, TOLLERATED WELL WITH NO S/S OF ACUTE DISTRESS, REPOSITIONED BACK IN BED FOR COMFORT, VSS, NSR ON CM, DENIES PAIN OR NEEDS AT THIS TIME, WILL CONTINUE TO MONITOR
--- NOTE | 2019-09-09 06:00 | NUR ---
CHG BATH AND COMPLETE LINEN CHANGED, YELLOW GOWN PLACED, PT ASSISTED WITH RNx2 TO BEDSIDE CHAIR, PT TOLLERATED MOVEMENT WITH NO ACUTE S/S OF DISTRESS, VSS, LINES AND TUBES REPOSITIONED, PT CALM AND RELAXED, CALL LIGHT IN REACH
[2019-09-09 06:17] LABS: BASOPHILS 0.2 % (0-2); EOSINOPHILS 0.1 % (0-7); HEMATOCRIT 37.8 % (42.0-54.0); HEMOGLOBIN 12.6 g/dL (13.5-17.5); IMMATURE GRANULOCYTES 0.4 % (0-5); LYMPHOCYTES 12.4 % (15-50); MCH 31.5 pg (26.0-34.0); MCHC 33.3 g/dL (31.0-37.0); MCV 94.5 fL (80.0-100.0); MEAN PLATELET VOLUME 9.8 fL (7.4-10.4); MONOCYTES 13.5 % (2-11); NEUTROPHILS 73.4 % (40-80); PLATELET COUNT 152 10x3/uL (130-400); RDW 12.2 % (11.5-14.5); WBC 13.1 10x3/uL (4.8-10.8)
[2019-09-09 07:11] LABS: ALBUMIN 2.5 g/dL (3.4-5.0); ALKALINE PHOSPHATASE 46 U/L (30-120); ALT (SGPT) 16 U/L (10-68); BILIRUBIN - TOTAL 0.51 mg/dL (0.2-1.3); CALC OSMOLALITY 275 mosm/kg (275-300); CALCIUM 7.3 mg/dL (8.5-10.1); CARBON DIOXIDE 25.7 mmol/L (21.0-32.0); CHLORIDE - SERUM 104 mmol/L (98-107); CREATININE - SERUM 0.7 mg/dL (0.6-1.3); GLUCOSE 136 mg/dL (74-106); POTASSIUM - SERUM 3.8 mmol/L (3.5-5.1); PROTEIN - SERUM 5.1 g/dL (6.4-8.2); SODIUM 137 mmol/L (136-145); UREA NITROGEN 13 mg/dL (7-18); eGFR NON AFRICAN AMERICAN > 90 mL/min (90-120)
--- NOTE | 2019-09-09 10:28 | OP ---
PATIENT NAME: EVERARDO ACEVES MEDICAL RECORD: [id number] :54 LOCATION:[facility] ADMISSION DATE:09/05/19 SURGEON: EDILBERTO BALDWIN MD DATE OF OPERATION: 09/08/2019 SURGEON: Edilberto Baldwin MD GRAIN ELEVATOR OPERATOR: EVANS Tobias MD OPERATION PERFORMED: Coronary artery bypass graft times 4 (left internal mammary artery to LAD, reverse saphenous vein graft from aorta to first obtuse marginal, aorta to posterolateral circumflex branch, and from the side of that vein graft to the PDA distally). PREOPERATIVE DIAGNOSES: Coronary artery disease with left anterior descending occlusion, obtuse marginal occlusion, severe in-stent and distal right coronary artery stenosis. POSTOPERATIVE DIAGNOSES: Coronary artery disease with left anterior descending occlusion, obtuse marginal occlusion, severe in-stent and distal right coronary artery stenosis. ANESTHESIA: General endotracheal anesthesia. ESTIMATED BLOOD LOSS: Total cardiopulmonary bypass with Cell Saver retransfusion. COMPLICATIONS: None. SPECIMENS: None. CONDITION: Stable. DISPOSITION: CV ICU. OPERATIVE FINDINGS: 1. Exploration just below the knee on the right did not reveal a sizable greater saphenous vein, although it appeared to be 3-mm on the vein mapping so that vein was not harvested and on the left leg a good 5-mm vein was harvested endoscopically. 2. Good quality left internal mammary artery to LAD was a 2.5-mm vessel with moderate disease. Good Doppler signal after anastomosis and after reversal of heparin. 3. The bifurcating totally occluded first obtuse marginal had severe calcified plaque down to the bifurcation, so the head of the graft was taken out on the more proximal side, it was a 2.0-mm vessel. 4. The distal right coronary artery was severely calcified down to and including the origin of the posterior descending artery, which was a more thin walled 1.25-mm vessel, so a smaller caliber portion of vein that was a match for this graft was anastomosed and the proximal end of that was brought off the vein graft to the posterolateral. The posterolateral circumflex was 2.0-mm vessel with moderate disease. INDICATION: Coronary artery disease, acute coronary syndrome, history of coronary stenting and occluded LAD and obtuse marginal with in-stent restenosis OPERATIVE REPORT [id number] EVERARDO ACEVES and progressive distal right coronary artery disease. PROCEDURE IN DETAIL: The patient was brought to the operative suite. General anesthesia was obtained, the patient was prepped and draped. Greater saphenous vein harvested endoscopically from the left leg after visualizing the vein on the right leg. Side branch was divided with electrocautery. The vessel was ligated proximally and distally and removed. Side branches were tied, leakage sites were oversewn. Dr. Tobias was in charge of the vein harvest and repair and the use of an veterinarian assistant surgeon saved about 45 minutes of general anesthetic time. The leg was later irrigated and closed in 2 layers. Median sternotomy incision was made. Subcutaneous tissue was divided by electrocautery. The sternum was divided with a saw. Left hemisternum was elevated. Left pleural cavity was entered. Left internal mammary vein was taken as a pedicle graft. Sternal retractor was placed. Pericardium was opened. Heparin was given. Aorta was cannulated. Dual stage venous cannula was inserted. The patient had some hypotension, placed in cardiopulmonary bypass. The internal mammary was clipped distally and made ready for anastomosis. Sites for distal anastomosis was selected. Retrograde cardioplegia cannula was inserted. Antegrade cardioplegia cannula was inserted. The patient was cooled. Crossclamp was placed. Cardioplegia given antegrade and retrograde. This was repeated at 15 to 20 minute intervals during the crossclamp time. Distal anastomosis was performed in standard technique. Some dissection on the inferior wall along the distal right coronary and proximal PDA resulted in use of clips to control bleeding from the veins and several sutures. Proximal anastomosis in single cross-clamp technique single [id number]-fl-pwpc vein graft. After removing the crossclamp, the patient was fully rewarmed, weaned from cardiopulmonary bypass and stable. The patient was decannulated. The cannula sites were oversewn. Protamine was given. Thorough irrigation was undertaken. Grafts lay appropriately. Ventricular pacing wire was placed. Drains were placed in the mediastinum and left pleural cavity. The pericardial fat was loosely reapproximated. Left chest was evacuated and irrigated. The internal mammary harvest site was inspected for bleeding. Sternum was closed with wires. Fascia was closed. Subcutaneous tissue was closed. The skin was closed. Dermabond was placed. The needle and sponge counts were reported as correct. The patient was taken to ICU in stable condition. TRANSINT:[id number] Voice Confirmation ID: [id number] DOCUMENT ID: [id number] EDILBERTO BALDWIN MD at 1028 CC: NIKHIL GREENFIELD M.D. and KATEY THOMPSON [id number] DICTATION DATE: 09/08/19 1335 NATIONAL STORMWATER LEADER: 09/08/19 1636 ADM IN [facility] [address] [id number]
--- NOTE | 2019-09-09 13:18 | NUR ---
0715-RECIEVED AWAKE AND ALERT-UP IN CHAIR-MONITOR IN PLACE-SR AT THIS TIME-ROOM AIR-REFUSES PAIN MED AT THIS TIME-MEDIASTINAL CHEST TUBES WITH NO AIR LEAK NOTED-20CM SUCTION 0830-ASSISTED WITH BREAKFEST TRAY 1000-DR BALDWIN AT BEDSIDE -PT ASSISTED BACK TO BED FOR REMOVAL OF MEDIASTINAL CHEST TUBES BY DR BALDWIN-PT REFUSED PAIN MEDICINE AT THIS TIME 1015-2 MG MORPHINE GIVEN AT DR BALDWIN DIRECTION-CHEST TUBES REMOVED BY DR WELCH -TOLERATED WELL BY PT - R RADIAL INGRID D/C-AT DIRECTION OF DR BALDWIN-DR PARRY AT BEDSIDE AND SHOWN R RADIAL SITE POST REMOVAL NOTED WRIST BOARD BAND IRRITATION
--- NOTE | 2019-09-09 18:37 | NUR ---
1515-DOP D/C-R IJ SALINE LOCKED ORDERED 1700-ASSISTED TO BED WITH MINIMAL ASSIST REQUIRED
--- NOTE | 2019-09-09 19:00 | NUR ---
REPORT RECEIVED. RECEIVED PATIENT IN BED. AWAKE ALERT AND ORIENTED X 4. ASSESSMENT COMPLETED PER FLOW SHEET WITH NO ACUTE DISTRESS OBSERVED. MONITORS CONNECTED TO PATIENT WITH ALARMS SET. VSS. CALL LIGHT IN REACH AND ABLE TO UTILILIZE TO MAKE NEEDS KNOWN
--- NOTE | 2019-09-09 21:00 | NUR ---
AWAKE AND ALERT. VSS. CALL LIGHT IN REACH
--- NOTE | 2019-09-09 23:00 | NUR ---
AWAKE AND ALERT. VSS. REASSESSMENT COMPLETED PER FLOW SHEET WITH NO ACUTE DISTRESS OBSERVED. CALL LIGHT IN REACH
[2019-09-10] VITALS (24 sets, daily range): BP systolic 90–130; BP diastolic 44–69
--- NOTE | 2019-09-10 03:00 | NUR ---
AWAKE AND ALERT. VSS. REASSESSMENT COMPLETED PER FLOW SHEET WITH NO ACUTE DISTRESS OBSERVED. CALL LIGHT IN REACH
--- NOTE | 2019-09-10 05:00 | NUR ---
AWAKE AND ALERT. VSS. CALL LIGHT IN REACH
--- NOTE | 2019-09-10 05:30 | NUR ---
PATIENT AMBULATED TO BATHROOM ,GAIT STEADY. CHG BATH GIVEN. AMBULATED TO BEDSIDE CHAIR. SUBSTERNAL AND RLE DRESSINGS CHANGED. PAULA WELL. VSS. CALL LIGHT IN REACH
[2019-09-10 06:14] LABS: BASOPHILS 0.1 % (0-2); EOSINOPHILS 0.6 % (0-7); HEMATOCRIT 34.8 % (42.0-54.0); HEMOGLOBIN 11.4 g/dL (13.5-17.5); IMMATURE GRANULOCYTES 0.2 % (0-5); LYMPHOCYTES 12.2 % (15-50); MCH 31.3 pg (26.0-34.0); MCHC 32.8 g/dL (31.0-37.0); MCV 95.6 fL (80.0-100.0); MEAN PLATELET VOLUME 9.8 fL (7.4-10.4); MONOCYTES 12.4 % (2-11); NEUTROPHILS 74.5 % (40-80); PLATELET COUNT 127 10x3/uL (130-400); RBC 3.64 10x6/uL (4.20-6.10); RDW 12.5 % (11.5-14.5); WBC 10.5 10x3/uL (4.8-10.8)
[2019-09-10 06:48] LABS: ALBUMIN 2.6 g/dL (3.4-5.0); ALKALINE PHOSPHATASE 53 U/L (30-120); ALT (SGPT) 19 U/L (10-68); BILIRUBIN - TOTAL 0.54 mg/dL (0.2-1.3); CALC OSMOLALITY 278 mosm/kg (275-300); CALCIUM 7.8 mg/dL (8.5-10.1); CARBON DIOXIDE 28.7 mmol/L (21.0-32.0); CHLORIDE - SERUM 102 mmol/L (98-107); CREATININE - SERUM 0.9 mg/dL (0.6-1.3); GLUCOSE 116 mg/dL (74-106); POTASSIUM - SERUM 3.8 mmol/L (3.5-5.1); PROTEIN - SERUM 5.7 g/dL (6.4-8.2); SODIUM 140 mmol/L (136-145); UREA NITROGEN 10 mg/dL (7-18); eGFR NON AFRICAN AMERICAN 89 mL/min (90-120)
--- NOTE | 2019-09-10 12:58 | NUR ---
DR HENDERSON AT BEDSIDE STATUS REPORT-PT ALERT AND EASILY CONVERSES-ORDER RECIEVED-BAILEY CATH REMOVED PER POLICY/PROCEDURE-TOLERATED WELL
--- NOTE | 2019-09-10 19:00 | NUR ---
REPORT RECEIVED. RECEIVED PATIENT UP IN BEDSIDE CHAIR. AWAKE ALERT AND ORIENTED X 4. SHIFT ASSESSEMENT COMPLETED PER FLOW SHEET WITH NO ACUTE DISTRESS OBSERVED. MONITORS CONNECTED TO PATIENT WITH ALARMS SET. VSS. CALL LIGHT IN REACH AND ABLE TO UTILIZE TO MAKE NEEDS KNOWN. WILL CONTINUE CURRENT POC
--- NOTE | 2019-09-10 23:00 | NUR ---
RESTING WITH EYES CLOSED, EASILY ROUSED AND ALERT. REASSESSMENT COMPLETED PER FLOW SHEET WITH NO ACUTE DISTRESS OBSERVED. VSS. CALL LIGHT IN REACH
[2019-09-11] VITALS (10 sets, daily range): BP systolic 97–130; BP diastolic 41–65
--- NOTE | 2019-09-11 01:00 | NUR ---
RESTING WITH EYES CLOSED, EASILY ROUSED AND ALERT. DENIES PAIN. VSS. CALL LIGHT IN REACH
--- NOTE | 2019-09-11 03:00 | NUR ---
AWAKE AND ALERT. REASSESSMENT COMPLETED PER FLOW SHEET WITH NO ACUTE DISTRESS OBSERVED. VSS. CALL LIGHT IN REACH
--- NOTE | 2019-09-11 05:00 | NUR ---
AWAKE AND ALERT. AMBULATING HALLWAY/ ON TELEMETRY.
[2019-09-11 06:04] LABS: BASOPHILS 0.3 % (0-2); EOSINOPHILS 4.1 % (0-7); HEMATOCRIT 31.5 % (42.0-54.0); HEMOGLOBIN 10.5 g/dL (13.5-17.5); IMMATURE GRANULOCYTES 0.1 % (0-5); LYMPHOCYTES 17.6 % (15-50); MCH 31.5 pg (26.0-34.0); MCHC 33.3 g/dL (31.0-37.0); MCV 94.6 fL (80.0-100.0); MEAN PLATELET VOLUME 9.6 fL (7.4-10.4); MONOCYTES 12.6 % (2-11); NEUTROPHILS 65.3 % (40-80); PLATELET COUNT 144 10x3/uL (130-400); RBC 3.33 10x6/uL (4.20-6.10); RDW 12.4 % (11.5-14.5)
[2019-09-11 06:05] LABS: WBC 7.1 10x3/uL (4.8-10.8)
[2019-09-11 06:19] LABS: ALBUMIN 2.4 g/dL (3.4-5.0); ALKALINE PHOSPHATASE 54 U/L (30-120); ALT (SGPT) 19 U/L (10-68); BILIRUBIN - TOTAL 0.58 mg/dL (0.2-1.3); CALC OSMOLALITY 274 mosm/kg (275-300); CALCIUM 7.8 mg/dL (8.5-10.1); CARBON DIOXIDE 27.4 mmol/L (21.0-32.0); CHLORIDE - SERUM 105 mmol/L (98-107); CREATININE - SERUM 0.9 mg/dL (0.6-1.3); GLUCOSE 96 mg/dL (74-106); POTASSIUM - SERUM 3.9 mmol/L (3.5-5.1); PROTEIN - SERUM 5.7 g/dL (6.4-8.2); SODIUM 138 mmol/L (136-145); UREA NITROGEN 9 mg/dL (7-18); eGFR NON AFRICAN AMERICAN 89 mL/min (90-120)
--- NOTE | 2019-09-11 09:57 | NUR ---
0700- AWAKE AND ALERT-AMBULATING AD ISAMAR 0815-SELF HYGEINE-PROVIDED HEBICLENS 0915-AMBULATING IN HALLWAY-DR SINGH AT BEDSIDE-DISCUSSED POST CARE AT HOME AND FOLLOW UP
--- NOTE | 2019-09-11 11:30 | NUR ---
DR HENDERSON AT BEDSIDE-KE WITH PT REGARDING PLAN OF CARE
--- NOTE | 2019-09-11 13:23 | NUR ---
AMBULATING INDEPENDENTLY
--- NOTE | 2019-09-11 19:22 | NUR ---
PT RECEIVED UP WALKING IN ROOM. SIT IN CHAIR ENTERING ROOM. AIXA DRAIN PATENT. NO S/S OF DISTRESS. NO NEEDS MADE KNOWN. CALL LIGHT IN REACH. WILL CONTINUE TO OBSERVE.
--- NOTE | 2019-09-11 21:24 | NUR ---
PT RECEIVED MEDICATIONS PER JUL. TOLERATED WELL. ICE CREAM GIVEN PER REQUEST. CALL LIGHT IN REACH. WILL CONTINUE TO OBSERVE.
--- NOTE | 2019-09-11 23:21 | NUR ---
PT WITH EYES OPEN WATCHING TV. NO S/S OF DISTRESS. VITAL SIGNS WNL. NO NEEDS MADE KNOWN. CALL LIGHT IN REACH. WILL CONTINUE TO OBSERVE.
--- NOTE | 2019-09-12 01:57 | NUR ---
PT STATES HE HAD BM, MEDIUM IN SIZE, SOFT FORMED. WILL CONTINUE TO OBSERVE.
--- NOTE | 2019-09-12 03:30 | NUR ---
PT UP IN CHAIR. STATES UNABLE TO SLEEP. NO S/S OF DISTRESS. COFFEE GIVEN PER REQUEST. VITAL SIGNS WITHIN NORMAL LIMITS. CALL LIGHT IN REACH. WILL CONTINUE TO OBSERVE.
[2019-09-12 04:00] VITALS: BP 97/52
[2019-09-12 05:54] LABS: BASOPHILS 0.2 % (0-2); EOSINOPHILS 7.3 % (0-7); HEMATOCRIT 30.8 % (42.0-54.0); HEMOGLOBIN 10.3 g/dL (13.5-17.5); LYMPHOCYTES 18.4 % (15-50); MCH 31.6 pg (26.0-34.0); MCHC 33.4 g/dL (31.0-37.0); MCV 94.5 fL (80.0-100.0); MEAN PLATELET VOLUME 9.2 fL (7.4-10.4); MONOCYTES 12.4 % (2-11); NEUTROPHILS 61.7 % (40-80); RBC 3.26 10x6/uL (4.20-6.10); RDW 12.4 % (11.5-14.5); WBC 6.1 10x3/uL (4.8-10.8)
[2019-09-12 06:28] LABS: PLATELET COUNT 179 10x3/uL (130-400)
[2019-09-12 06:40] LABS: ALBUMIN 2.4 g/dL (3.4-5.0); ALKALINE PHOSPHATASE 53 U/L (30-120); ALT (SGPT) 15 U/L (10-68); BILIRUBIN - TOTAL 0.58 mg/dL (0.2-1.3); CALC OSMOLALITY 277 mosm/kg (275-300); CALCIUM 8.7 mg/dL (8.5-10.1); CHLORIDE - SERUM 105 mmol/L (98-107); CREATININE - SERUM 0.9 mg/dL (0.6-1.3); GLUCOSE 119 mg/dL (74-106); POTASSIUM - SERUM 3.6 mmol/L (3.5-5.1); PROTEIN - SERUM 5.8 g/dL (6.4-8.2); SODIUM 139 mmol/L (136-145); UREA NITROGEN 10 mg/dL (7-18); eGFR NON AFRICAN AMERICAN 89 mL/min (90-120)
[2019-09-12 07:20] VITALS: BP 126/53
[2019-09-12 08:11] VITALS: BP 123/61
--- NOTE | 2019-09-12 08:22 | NUR ---
AIXA DRAIN REMOVED BY DR. BALDWIN. APPROXIMATELY 50CC SEROSANG FLUID NOTED. 4X4'S, IODINE OINTMENT APPLIED TO INSICION. SECURED WITH TAGEDERM DRESSING. PT RESTING COMFORTABLY IN BED.
[2019-09-12] MEDS ORDERED: PLAVIX75 MG PO (08:27)
[2019-09-12] MEDS ORDERED: TOPROL XL25 MG PO (08:27)
[2019-09-12] MEDS ORDERED: ASPIRIN EC81 M1 PO (08:28)
[2019-09-12] MEDS ORDERED: COLACE100 MG PO (08:30)
[2019-09-12] MEDS ORDERED: PERCOCET 5-3251 TAB PO (08:30)
--- NOTE | 2019-09-12 09:30 | NUR ---
Nutrition Follow-up: POD 4 CABG. Eating well. Diet: Cardiac Wt: 182.3# (09/11); 191.8# (09/08); 177# (09/06) Labs noted: Glu 119, Alb 2.4 Meds noted: Protonix, Senokot, Colace -Monitor wt. -RD following.
--- NOTE | 2019-09-12 10:54 | TEE ---
PATIENT:EVERARDO ACEVES MEDICAL RECORD: [id number] LOCATION:[place] [address] AGE OF PATIENT: 69 ADMISSION DATE: 09/05/19 SEX: M REFERRING PHYSICIAN: INTERPRETING PHYSICIAN: ESTELLA KUMAR MD TRANSESOPHAGEAL ECHOCARDIOGRAM Date: 09/08/19 DMITRI CHARGE Y INDICATIONS: CABG PREMEDICATIONS: PATIENT'S RESPONSE PROCEDURE DOPPLER MEASUREMENTS: LVIT LA 4.2 PA 138 RA LVOT 80 RVOT 72 Asc. Ao 140 AV Gradient Peak 7.80 AV Mean 4.29 AV Area 1.7 MV Gradient Peak 3.81 MV Mean 1.26 MV Area INTERPRETATION: Doppler: 2-D: COLOR FLOW DOPPLER NORMAL SALINE STUDY: MISCELLANOUS: LVD:5.4 LVS:2.8 DIAGNOSIS: PLAN: Blower Feeder Dyed Raw Stock:3 Dr. Morales Configuration Engineer: Myke ALAN COMMENTS: DATE OF SERVICE: PROCEDURE: Intraoperative DMITRI. Preop normal LV wall motion with normal wall thickening and normal EF 50%. Aortic valve is tricuspid. Good valve excursion. Left atrium appears normal. Mitral valve appears normal. Mild MR. Postop again good normal segmental wall motion with normal EF. No significant valve pathology. TRANSESOPHAGEAL ECHOCARDIOGRAM REPORT [id number] FRANK ACEVES TRANSINT:[id number] Voice Confirmation ID: [id number] DOCUMENT ID: [id number] at 1054 CC: [id number] DICTATION DATE: 09/08/19 1308 GOURMET COFFEE ATTENDANT: 09/09/19 0029 ADM IN [place] [id number] [place] [address]
--- NOTE | 2019-09-12 11:03 | NUR ---
DISCHARGE INSTRUCTIONS GIVEN TO PT. WAITING ON SPOUSE TO PICK HIM UP. NO NEEDS AT THIS TIME.
--- NOTE | 2019-09-12 11:30 | NUR ---
PT WHEELED OUT TO PERSONAL VEHICLE BY STEPHNAIE SANCHEZ. PERSONAL BELONGINGS SENT WITH PT.
--- NOTE | 2019-09-13 09:54 | MORECARE ---
CASE MANAGEMENT DISCHARGE SUMMARY PATIENT: EVERARDO ACEVES UNIT: [id number] ADM DATE: 09/05/19 AGE: 69 : 52 SEX: M ROOM/BED: D[facility] AUTHOR: BUD,DOC PHYSICIAN: REFERRING PHYSICIAN: ROSETTA SINGH MD DATE OF SERVICE: 09/13/19 Discharge Plan Patient Name: EVERARDO ACEVES Facility: [facility]:[place] : 1950 Planned Disposition: Home Anticipated Discharge Date: 09/05/19 Discharge Date: 09/12/2019 Expected LOS: 1 Initial Reviewer: [email or web address] Initial Review Date: 09/04/2019 Generated: 09/13/19 10:54 am DCP- Discharge Planning Updated by [email or web address]: Erica Phipps on 09/05/19 11:[address] Patient Name: EVERARDO ACEVES Admission Status: ER Accout number: [id number] Admission Date: 09-04-2019 : 1950 Admission Diagnosis: Attending: ROSETTA SINGH Current LOS: 1 Anticipated DC Date: 09-05-2019 Planned Disposition: Home Primary Insurance: MEDICARE A & B Discharge Planning Comments: CM phoned patient (he is in isolation and I cannot go in room due to covid 19 protocol) to complete initial dc planning assessment. CM educated patient on the CM role and verbal consent given by patient to complete assessment. Patient lives at home with spouse. At discharge patient plans to return and feels this is a safe discharge. CM discussed availability of home health, rehab services, and medical equipment. Patient denied known discharge needs at this time. CM will continue to follow and will assist as needed with dc plans/needs. Gas Engine Performance Engineer: Erica Phipps DCPIA - Discharge Planning Initial Assessment Updated by [email or web address]: Erica Phipps on 09/05/19 12:23 pm * Is the patient Alert and Oriented? Yes * How many steps to enter\exit or inside your home? 0/0 * PCP Dr. Pope * Pharmacy [facility] on [address] * Preadmission Environment Home with Family * ADLs Independent * Equipment None * List name and contact numbers for known caregivers / representatives who currently or will assist patient after discharge: Martha Aceves - [facility] - [phone] * Verbal permission to speak to the caregivers and representatives has been obtained from the patient. Yes * Community resources currently utilized None * Additional services required to return to the preadmission environment? No * Can the patient safely return to the preadmission environment? Yes * Has this patient been hospitalized within the prior 30 days at any hospital? No Coverage Notice Reviewer: [email or web address] Denise Phipps Notice Issued Date-Time: 09/05/2019 12:16 Notice Type: Medicare Outpatient Observation Notice Notice Delivered To: Patient Relationship to Patient: Self Bullard Machine Operator Name: Delivery Method: PHONE - Phone Anum Days: Prior Verbal Notification: Recipient Understood Notice: Yes Recipient Signature: Med Rec Note Co-signed by Attending: Coverage Notice Comment: JIGNA explained over the phone per Covid - 19 protocol, given to patient by primary nurse. Last DP export: 09/05/19 11:29 a Patient Name: EVERARDO ACEVES Page [phone] at 0954 All edits/amendments must be made on the electronic document DICTATION DATE: 09/13/1952 MANAGER QUANTITATIVE: STEPHANI 09/13/19 0954 RPT#: [id number] DC DATE:09/12/19 STATUS: DIS IN [facility] [address] [place] [address] END OF REPORT
== END 2019-09-12 11:45 | disposition home or self-care (01) | DRG 234 ==
LOC: D.ER 13:19 → D.M2 15:03 → OBSVTIME 15:16 → D.M2 16:04 → D.CVICU 09-05 18:22 → D.M2 09-05 18:22 → D.CVICU 09-08 12:06
PROVIDERS: Emergency Medicine; Internal Medicine Cardiovascular Disease; Thoracic Surgery (Cardiothoracic Vascular Surgery); ADMIT Internal Medicine Nephrology; ATTEND Internal Medicine Nephrology
PROC: B2151ZZ Fluoroscopy of Left Heart using Low Osmolar Contrast (ICD-10-PCS; 2019-09-06)
PROC: 4A023N7 Measurement of Cardiac Sampling and Pressure, Left Heart, Percutaneous Approach (ICD-10-PCS; 2019-09-06)
PROC: B2111ZZ Fluoroscopy of Multiple Coronary Arteries using Low Osmolar Contrast (ICD-10-PCS; principal; 2019-09-06 09:00)
PROC: 02100Z9 Bypass Coronary Artery, One Artery from Left Internal Mammary, Open Approach (ICD-10-PCS; 2019-09-08)
PROC: 021209W Bypass Coronary Artery, Three Arteries from Aorta with Autologous Venous Tissue, Open Approach (ICD-10-PCS; 2019-09-08)
PROC: 06BQ4ZZ Excision of Left Saphenous Vein, Percutaneous Endoscopic Approach (ICD-10-PCS; 2019-09-08)
PROC: 5A1221Z Performance of Cardiac Output, Continuous (ICD-10-PCS; 2019-09-08)
PROC: B245ZZ4 Ultrasonography of Left Heart, Transesophageal (ICD-10-PCS; 2019-09-08)
DX: I25.110 Atherosclerotic heart disease of native coronary artery with unstable angina pectoris (principal); E87.1 Hypo-osmolality and hyponatremia; I10 Essential (primary) hypertension; E86.0 Dehydration; R00.1 Bradycardia, unspecified; D64.9 Anemia, unspecified

== ENCOUNTER → 2019-10-05 08:14 | Outpatient (CLI) | payer MEDICARE, BC ==
[2019-09-09 10:16] VITALS: BMI 26.7
[~2019-10-05 08:14] MED LIST changes: +ASPIRIN EC81 M1 PO; +COLACE100 MG PO; +PERCOCET 5-3251 TAB PO; +PLAVIX75 MG PO; +PRAVACHOL20 MG PO; +TOPROL XL25 MG PO
[2019-10-05 08:43] LABS: BASOPHILS 0.5 % (0-2); EOSINOPHILS 10.5 % (0-7); HEMATOCRIT 43.3 % (42.0-54.0); HEMOGLOBIN 14.3 g/dL (13.5-17.5); IMMATURE GRANULOCYTES 0.1 % (0-5); LYMPHOCYTES 19.4 % (15-50); MCH 31.1 pg (26.0-34.0); MCV 94.1 fL (80.0-100.0); MEAN PLATELET VOLUME 9.1 fL (7.4-10.4); MONOCYTES 7.7 % (2-11); NEUTROPHILS 61.8 % (40-80); PLATELET COUNT 234 10x3/uL (130-400); RDW 12.7 % (11.5-14.5); WBC 8.4 10x3/uL (4.8-10.8)
[2019-10-05 09:00] LABS: CALC OSMOLALITY 281 mosm/kg (275-300); CALCIUM 9.4 mg/dL (8.5-10.1); CARBON DIOXIDE 26.2 mmol/L (21.0-32.0); CHLORIDE - SERUM 107 mmol/L (98-107); GLUCOSE 96 mg/dL (74-106); POTASSIUM - SERUM 4.3 mmol/L (3.5-5.1); SODIUM 141 mmol/L (136-145); UREA NITROGEN 15 mg/dL (7-18); eGFR NON AFRICAN AMERICAN 79 mL/min (90-120)
== END | disposition home or self-care (01) ==
LOC: D.RAD 08:14
PROVIDERS: ATTEND Thoracic Surgery (Cardiothoracic Vascular Surgery)
DX: I25.10 Atherosclerotic heart disease of native coronary artery without angina pectoris (principal); Z95.1 Presence of aortocoronary bypass graft

== ENCOUNTER → 2020-09-26 08:43 | Outpatient (CLI) | payer MEDICARE, BC ==
[2019-09-09 10:16] VITALS: BMI 26.7
== END | disposition home or self-care (01) ==
LOC: D.HCCECHO 08:43
PROVIDERS: ATTEND Internal Medicine Cardiovascular Disease
DX: I25.10 Atherosclerotic heart disease of native coronary artery without angina pectoris (principal)